=== PATIENT | male | born 1940 | race Caucasian/White ===

== ENCOUNTER 2017-04-11 18:01 | Emergency (ER) | payer BC, MEDICARE, OTHER ==
[2017-04-11 20:07] VITALS: BP 131/76
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
== END 2017-04-11 21:06 | disposition home or self-care (01) ==
LOC: JP.ED 18:01
DX: S46.911A Strain of unspecified muscle, fascia and tendon at shoulder and upper arm level, right arm, initial encounter (principal); G47.30 Sleep apnea, unspecified; Z90.49 Acquired absence of other specified parts of digestive tract; Z98.890 Other specified postprocedural states; Z85.820 Personal history of malignant melanoma of skin; V89.2XXA Person injured in unspecified motor-vehicle accident, traffic, initial encounter; Y92.410 Unspecified street and highway as the place of occurrence of the external cause
CPT/HCPCS: 99283

== ENCOUNTER 2017-07-16 07:05 | Day surgery (SDC) | payer MEDICARE, BC ==
[~2017-07-16 07:05] MED LIST: Sodium Chloride 0.9% 10 ML Syringe FLUSH PRN
[2017-07-16] MEDS ORDERED: Sodium Chloride 0.9% 10 ML Syringe FLUSH ONE (08:30)
[2017-07-16 08:43] VITALS: BP 137/79
--- NOTE | 2017-07-16 11:43 | OR ---
DATE OF PROCEDURE: 07/16/2017 POSTOPERATIVE CARE: Postoperative care will be provided mainly at the [address] [place] [address] [facility] in conjunction with [facility]. PREOPERATIVE DIAGNOSIS: Cataract, left eye. PREOPERATIVE DIAGNOSIS: Cataract, left eye. PROCEDURE: Cataract extraction, phacoemulsification with intraocular lens placement, left eye. ANESTHESIA: Topical and intracameral. ESTIMATED BLOOD LOSS: Minimal. COMPLICATIONS: None. PATHOLOGY SPECIMENS: None. SURGICAL FINDINGS: None. INDICATION FOR PROCEDURE: The patient is a 77-year-old male with history of a visually significant cataract in the left eye, which interfered with activities of daily living. This consisted of a nuclear sclerosis cataract. Following careful discussion of the risks, benefits and alternatives to cataract extraction with intraocular lens placement including blindness and , the patient elected to proceed, and informed, written consent was obtained prior to the procedure. DESCRIPTION OF THE PROCEDURE: The patient was previously identified, and a fabiana placed above the left eye. All sources, including the patient, indicated that the left eye was the correct eye. The patient was subsequently taken to the operating room where standard monitors were applied. The patient was then prepped and draped in the usual sterile fashion for ophthalmic surgery. Attention was first directed at the 12 o'clock position where a paracentesis port was fashioned. Shugar solution followed by Viscoat was instilled into the eye. Attention was then directed to the 8:30 position where a triplanar incision was made in a near-clear manner using a keratome. A continuous capsulorrhexis was then made using a combination of the cystotome and Utrata forceps. Hydrodissection was achieved using a balanced salt solution, and the lens rotated nicely. Phacoemulsification was then done using a modified [id number] technique without complication. Phaco time was 13.73 CDE. The remaining cortex was removed using the irrigation/aspiration handpiece. Provisc was then instilled into the eye. A Technis lens, model [id number], at 21.5 diopters was then placed in the capsular bag using an [place] injector. The remaining viscoelastic was removed using the irrigation/aspiration forceps. A single 10-0 nylon stitch was placed in the main wound. All wounds were then checked and found to be watertight. The lid speculum and drapes were removed. Maxitrol ointment was placed in the patient's left eye, and the eye was shielded. The patient tolerated the procedure well. The patient was instructed to follow up tomorrow. All needle and sponge counts were correct at the end of the procedure. Guerda Hall MD /[id number]
== END 2017-07-16 09:05 | disposition home or self-care (01) ==
LOC: JP.SDS 07:05
PROVIDERS: ATTEND Ophthalmology
DX: H25.12 Age-related nuclear cataract, left eye (principal)
CPT/HCPCS: 66984; C1780; J7050

== ENCOUNTER 2017-07-30 07:27 | Day surgery (SDC) | payer MEDICARE, BC ==
[2017-07-30] MEDS ORDERED: Sodium Chloride 0.9% 10 ML Syringe FLUSH PRN (08:00)
[2017-07-30 09:34] VITALS: BP 137/82
--- NOTE | 2017-07-30 10:21 | OR ---
DATE OF PROCEDURE: 07/30/2017 POSTOPERATIVE CARE: Postoperative care will be provided mainly at the [address] [place] [address] [facility] in conjunction with [facility]. PREOPERATIVE DIAGNOSIS: Cataract, right eye. PREOPERATIVE DIAGNOSIS: Cataract, right eye. PROCEDURE: Cataract extraction, phacoemulsification with intraocular lens placement, right eye. ANESTHESIA: Topical and intracameral. ESTIMATED BLOOD LOSS: Minimal. COMPLICATIONS: None. PATHOLOGY SPECIMENS: None. SURGICAL FINDINGS: None. INDICATION FOR PROCEDURE: The patient is a 77-year-old male with history of a visually significant cataract in the right eye, which interfered with activities of daily living. This consisted of a nuclear sclerosis cataract. Following careful discussion of the risks, benefits and alternatives to cataract extraction with intraocular lens placement including blindness and , the patient elected to proceed, and informed, written consent was obtained prior to the procedure. DESCRIPTION OF THE PROCEDURE: The patient was previously identified, and a fabiana placed above the right eye. All sources, including the patient, indicated that the right eye was the correct eye. The patient was subsequently taken to the operating room where standard monitors were applied. The patient was then prepped and draped in the usual sterile fashion for ophthalmic surgery. Attention was first directed at the 12 o'clock position where a paracentesis port was fashioned. Shugar solution followed by Viscoat was instilled into the eye. Attention was then directed to the 8:30 position where a triplanar incision was made in a near-clear manner using a keratome. A continuous capsulorrhexis was then made using a combination of the cystotome and Utrata forceps. Hydrodissection was achieved using a balanced salt solution, and the lens rotated nicely. Phacoemulsification was then done using a modified [id number] technique without complication. Phaco time was 17.76 CDE. The remaining cortex was removed using the irrigation/aspiration handpiece. Provisc was then instilled into the eye. A Technis lens, model [id number], at 21.5 diopters was then placed in the capsular bag using an [place] injector. The remaining viscoelastic was removed using the irrigation/aspiration forceps. All wounds were then checked and found to be watertight. The lid speculum and drapes were removed. Maxitrol ointment was placed in the patient's right eye, and the eye was shielded. The patient tolerated the procedure well. The patient was instructed to follow up tomorrow. All needle and sponge counts were correct at the end of the procedure. Guerda Hall MD /[id number]
== END 2017-07-30 09:45 | disposition home or self-care (01) ==
LOC: JP.SDS 07:27
PROVIDERS: ATTEND Ophthalmology
DX: H28 Cataract in diseases classified elsewhere (principal); H25.11 Age-related nuclear cataract, right eye
CPT/HCPCS: 66984; C1780; J7050

== ENCOUNTER 2018-09-26 14:08 | Inpatient (IN) | payer MEDICARE, BC ==
[2018-09-26] MEDS ORDERED: Lactated Ringers 1,000 ML IV ONE (14:59)
[2018-09-26] MEDS ORDERED: Pantoprazole 40 MG Vial IVPUSH ONE ×2 (16:05→16:55)
[2018-09-26] MEDS ORDERED: Pantoprazole 40 MG Vial IVPUSH SCH ×2 (16:15→17:00)
[2018-09-26] MEDS ORDERED: Sodium Chloride 0.9% 100 ML with Pantoprazole 80 MG IV SCH ×2 (16:15)
--- NOTE | 2018-09-26 16:16 | EDM.PDOC ---
ED HPI GENERAL MEDICAL PROBLEM - General Chief Complaint: Syncope Stated Complaint: LOW BP/BLOODY STOOL Time Seen by Provider: 09/26/18 15:45 Source of Information: Reports: Patient History Limitations: Reports: No Limitations - History of Present Illness INITIAL COMMENTS - FREE TEXT/NARRATIVE: 78 yo with hx of metastatic melanoma in remission, arthritis (taking Aleve last two weeks), presents with concerns of syncope and GIB Went to shave this AM Standing at sink when he felt light headed. Passed out and landed on bottom. No headstrike. Brief LOC then helped him to toilet where he had bloody BM. Recently taking aleve bid for arthritis. No etoh or liver disease No hx of GERD No blood thinners. - Related Data Allergies Allergy/AdvReac Type Severity Reaction Status Date / Time No Known Allergies Allergy Verified 09/26/18 14:28 Home Meds: Home Meds Ascorbic Acid [Vitamin C] 500 mg PO BID 12/24/15 [History] Cholecalciferol (Vitamin D3) [Vitamin D3] 1,000 units PO DAILY 12/24/15 [History ] Multivitamin [Multiple Vitamins] 1 tab PO DAILY 12/24/15 [History] [place]-3S/DHA/Epa/Fish Oil [Fish Oil Dr 1,000 mg Softgel] 1,000 mg PO DAILY 12/23 [History] Vitamin B Complex [B Complex] 1 each PO DAILY 07/15/17 [History] Gluc [place]/Msm/Chondro Dunne A/C/Mn [Flexi Joint Tablet] 1 tab PO DAILY 06/16/18 [ History] Past Medical History HEENT History: Reports: Cataract, Impaired Vision Respiratory History: Reports: Sleep Apnea, Other (See Below) Other Respiratory History: 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 Gastrointestinal History: Reports: Colon Polyp, Other (See Below) Other Gastrointestinal History: colitis Musculoskeletal History: Reports: Osteoarthritis Hematologic History: Reports: Iron Deficiency Immunologic History: Reports: Other (See Below) Other Immunologic History: Immunotherpy for skin cancer Oncologic (Cancer) History: Reports: Lung, Malignant Melanoma, Squamous Cell Carcinoma Other Oncologic History: facial/headskin Dermatologic History: Reports: Melanoma - Infectious Disease History Infectious Disease History: Reports: Chicken Pox, Measles, Mumps, Shingles - Past Surgical History Head Surgeries/Procedures: Reports: None HEENT Surgical History: Reports: Cataract Surgery Other HEENT Surgeries/Procedures: cataract surg left eye Respiratory Surgical History: Reports: Lung Biopsies Other Respiratory Surgeries/Procedures: radiation for cancer GI Surgical History: Reports: Appendectomy, Colonoscopy, Hernia, Inguinal Musculoskeletal Surgical History: Reports: None Oncologic Surgical History: Reports: None Dermatological Surgical History: Reports: Skin Biopsy Social & Family History - Tobacco Use Smoking Status *Q: Never Smoker Second Hand Smoke Exposure: No - Caffeine Use Caffeine Use: Reports: Soda - Recreational Drug Use Recreational Drug Use: No ED ROS GENERAL - Review of Systems Review Of Systems: See Below Constitutional: Reports: No Symptoms HEENT: Reports: No Symptoms Respiratory: Reports: No Symptoms Cardiovascular: Reports: No Symptoms Endocrine: Reports: No Symptoms GI/Abdominal: Reports: Black Stool, Bloody Stool : Reports: No Symptoms Musculoskeletal: Reports: No Symptoms Skin: Reports: No Symptoms Neurological: Reports: Syncope Psychiatric: Reports: No Symptoms Hematologic/Lymphatic: Reports: No Symptoms Immunologic: Reports: No Symptoms - Physical Exam Exam: See Below Exam Limited By: No Limitations General Appearance: Alert, No Apparent Distress Ears: Normal External Exam Nose: Normal Inspection Throat/Mouth: Normal Inspection Head Exam: Atraumatic, Normocephalic Neck: Normal Inspection Respiratory/Chest: No Respiratory Distress, Lungs Clear Cardiovascular: Normal Peripheral Pulses GI/Abdominal: Soft, Non-Tender Neuro Exam (Abbreviated): Alert, Oriented, Normal Cognition Extremities: Normal Inspection Psychiatric: Normal Affect, Normal Mood Skin Exam: Warm, Dry Course - Vital Signs Last Recorded V/S: Last Vital Signs Temp 35.2 C L 09/26/18 14:37 Pulse 91 09/26/18 15:16 Resp 23 H 09/26/18 15:16 BP 89/43 L 09/26/18 15:16 Pulse Ox 96 09/26/18 15:16 - Orders/Labs/Meds Orders: Active Orders 24 hr Category Date Time Status RED BLOOD CELLS LP [BBK] Stat Lab 09/26/18 15:50 Ordered TYPE AND SCREEN [BBK] Stat Lab 09/26/18 15:50 Ordered Pantoprazole [ProTONIX IV] Med 09/26/18 16:15 Ordered 80 mg IVPUSH .BOLUS Sodium Chloride 0.9% [Normal Saline] 100 ml Med 09/26/18 16:15 Ordered Pantoprazole [ProTONIX IV] 80 mg IV 8 mls/hr Transfuse Red Blood Cells [COMM] Stat Oth 09/26/18 15:50 Ordered Transfuse Red Blood Cells [COMM] Stat Oth 09/26/18 15:50 Ordered Medication Orders Pantoprazole Sodium 80 mg/ (Sodium Chloride) 100 mls @ 8 mls/hr IV .[id number] COY Pantoprazole Sodium (Protonix Iv) 80 mg IVPUSH .BOLUS COY Labs: Laboratory Tests 09/26/18 09/26/18 09/26/18 Range/Units 15:10 15:10 15:10 WBC 10.2 (4.5-11.0) K/uL RBC 2.73 L (4.30-5.90) M/uL Hgb 7.8 L D (12.0-15.0) g/dL Hct 25.9 L (40.0-54.0) % MCV 95 (80-98) fL MCH 29 (27-31) pg MCHC 30 L (32-36) % Plt Count 503 H (150-400) K/uL Sodium 140 (140-148) mmol/L Potassium 4.4 (3.6-5.2) mmol/L Chloride 104 (100-108) mmol/L Carbon Dioxide 29 (21-32) mmol/L Anion Gap 7.3 (5.0-14.0) mmol/L BUN 33 H D (7-18) mg/dL Creatinine 0.7 L (0.8-1.3) mg/dL Est Cr Clr Drug Dosing 85.57 mL/min Estimated GFR (MDRD) > 60 (>60) Glucose 97 (74-106) mg/dL Lactic Acid 1.4 (0.4-2.0) mmol/L Calcium 8.3 L (8.5-10.1) mg/dL Total Bilirubin 0.2 D (0.2-1.0) mg/dL AST 20 (15-37) U/L ALT 18 (12-78) U/L Alkaline Phosphatase 52 (46-116) U/L Total Protein 6.0 L (6.4-8.2) g/dL Albumin 1.7 L (3.4-5.0) g/dL Globulin 4.3 H (2.3-3.5) g/dL Albumin/Globulin Ratio 0.4 L (1.2-2.2) Meds: Medications Generic Name Dose Route Start Last Admin Trade Name Freq PRN Reason Stop Dose Admin Pantoprazole Sodium 80 mg/ 100 mls @ 8 mls/hr 09/26/18 16:15 Sodium Chloride IV .[id number] COY Pantoprazole Sodium 80 mg 09/26/18 16:15 Protonix Iv IVPUSH .BOLUS COY Discontinued Medications Generic Name Dose Route Start Last Admin Trade Name Freq PRN Reason Stop Dose Admin Lactated Ringer's 1,000 mls @ 999 mls/hr 09/26/18 14:59 09/26/18 15:09 Ringers, Lactated IV 09/26/18 15:59 999 mls/hr BOLUS ONE Administration Pantoprazole Sodium 40 mg 09/26/18 16:05 Protonix Iv IVPUSH 09/26/18 16:06 ONETIME ONE - Re-Assessments/Exams Free Text/Narrative Re-Assessment/Exam: 78 yo presents with concerns of syncope and likely upper GIB in setting of NSAID use Initially hypotensive, improved with IVF bolus EKG non-ischemic Hgb down from 14.5 in Dec to 7.8 Transfusing 1 unit PPI gtt ordered No need for head CT Admitted 09/26/18 16:14 Departure - Departure Time of Disposition: 16:14 Disposition: Admitted As Inpatient 65 Clinical Impression: GIB (gastrointestinal bleeding) Qualifiers: GI bleed type/associated pathology: unspecified gastrointestinal hemorrhage type Qualified Code(s): K92.2 - Gastrointestinal hemorrhage, unspecified Syncope Qualifiers: Syncope type: unspecified Qualified Code(s): R55 - Syncope and collapse - Discharge Information Referrals: Suresh Chung MD [Primary Care Provider] - - My Orders Last 24 Hours: My Active Orders 09/26/18 15:50 RED BLOOD CELLS LP [BBK] Stat TYPE AND SCREEN [BBK] Stat Transfuse Red Blood Cells [COMM] Stat Transfuse Red Blood Cells [COMM] Stat 09/26/18 16:15 Pantoprazole [ProTONIX IV] 80 mg IVPUSH .BOLUS Sodium Chloride 0.9% [Normal Saline] 100 ml Pantoprazole [ProTONIX IV] 80 mg IV 8 mls/hr - Assessment/Plan Last 24 Hours: My Active Orders 09/26/18 15:50 RED BLOOD CELLS LP [BBK] Stat TYPE AND SCREEN [BBK] Stat Transfuse Red Blood Cells [COMM] Stat Transfuse Red Blood Cells [COMM] Stat 09/26/18 16:15 Pantoprazole [ProTONIX IV] 80 mg IVPUSH .BOLUS Sodium Chloride 0.9% [Normal Saline] 100 ml Pantoprazole [ProTONIX IV] 80 mg IV 8 mls/hr
--- NOTE | 2018-09-26 16:49 | PCM.HP ---
H&P History of Present Illness - General Date of Service: 09/26/18 Admit Problem/Dx: Admission Diagnosis/Problem Admission Diagnosis/Problem Bleeding Source of Information: Patient, Provider, RN Notes Reviewed History Limitations: Reports: No Limitations - History of Present Illness Initial Comments - Free Text/Narative: Mr. Neal is a 78-year-old gentleman who is admitted through the emergency department with weakness, lightheadedness, and anemia, secondary to upper GI bleed. He has had recent flare of his osteoarthritis and has been taking Aleve twice daily. Over the last week he is become progressively more lightheaded and fatigued with decreased exercise tolerance. The last 2 days he's felt even more weak and today very lightheaded. Also noted was a melenic-appearing stool which occurred earlier this morning. He presented to the emergency department today for further evaluation. Hemoglobin was found to be low at 7.8 and on initial presentation has had borderline systolic blood pressures in the low 90s. He is receiving 1 L of LR in the emergency department. - Related Data Allergies/Adverse Reactions: Allergies Allergy/AdvReac Type Severity Reaction Status Date / Time No Known Allergies Allergy Verified 09/26/18 14:28 Home Medications: Home Meds Ascorbic Acid [Vitamin C] 500 mg PO BID 12/24/15 [History] Cholecalciferol (Vitamin D3) [Vitamin D3] 1,000 units PO DAILY 12/24/15 [History ] Multivitamin [Multiple Vitamins] 1 tab PO DAILY 12/24/15 [History] [place]-3S/DHA/Epa/Fish Oil [Fish Oil Dr 1,000 mg Softgel] 1,000 mg PO DAILY 12/23 [History] Vitamin B Complex [B Complex] 1 each PO DAILY 07/15/17 [History] Gluc Dunne/Msm/Chondro Dunne A/C/Mn [Flexi Joint Tablet] 1 tab PO DAILY 06/16/18 [ History] Past Medical History HEENT History: Reports: Cataract, Impaired Vision Respiratory History: Reports: Sleep Apnea, Other (See Below) Other Respiratory History: 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 Gastrointestinal History: Reports: Colon Polyp, Other (See Below) Other Gastrointestinal History: colitis Musculoskeletal History: Reports: Osteoarthritis Hematologic History: Reports: Iron Deficiency Immunologic History: Reports: Other (See Below) Other Immunologic History: Immunotherpy for skin cancer Oncologic (Cancer) History: Reports: Lung, Malignant Melanoma, Squamous Cell Carcinoma Other Oncologic History: facial/headskin Dermatologic History: Reports: Melanoma - Infectious Disease History Infectious Disease History: Reports: Chicken Pox, Measles, Mumps, Shingles - Past Surgical History Head Surgeries/Procedures: Reports: None HEENT Surgical History: Reports: Cataract Surgery Other HEENT Surgeries/Procedures: cataract surg left eye Respiratory Surgical History: Reports: Lung Biopsies Other Respiratory Surgeries/Procedures: radiation for cancer GI Surgical History: Reports: Appendectomy, Colonoscopy, Hernia, Inguinal Musculoskeletal Surgical History: Reports: None Oncologic Surgical History: Reports: None Dermatological Surgical History: Reports: Skin Biopsy Social & Family History - Tobacco Use Smoking Status *Q: Never Smoker Second Hand Smoke Exposure: No - Caffeine Use Caffeine Use: Reports: Soda - Recreational Drug Use Recreational Drug Use: No H&P Review of Systems - Review of Systems: Review Of Systems: See Below General: Reports: Weakness, Diaphoresis, Decreased Appetite. Denies: Fever, Chills HEENT: Reports: No Symptoms Pulmonary: Reports: No Symptoms Cardiovascular: Reports: No Symptoms Gastrointestinal: Reports: Constipation, Decreased Appetite, Melena. Denies: Abdominal Pain, Diarrhea, Difficulty Swallowing, Distension, Nausea, Vomiting Genitourinary: Reports: No Symptoms Musculoskeletal: Reports: No Symptoms Skin: Reports: No Symptoms Psychiatric: Reports: No Symptoms Neurological: Reports: No Symptoms Hematologic/Lymphatic: Reports: No Symptoms Immunologic: Reports: No Symptoms Exam - Exam Exam: See Below - Vital Signs Vital Signs: Last Vital Signs Temp 95.3 F L 09/26/18 14:37 Pulse 92 09/26/18 16:24 Resp 14 09/26/18 16:24 BP 110/62 09/26/18 16:24 Pulse Ox 99 09/26/18 16:24 Weight: 176 lb 1.331 oz - Exam Quality Assessment: DVT Prophylaxis General: Alert, Oriented, Cooperative, Mild Distress HEENT: Conjunctiva Clear, Hearing Intact, Normal Nasal Septum, Posterior Pharynx Clear, Pupils Equal. No: Mucosa Moist & [place] Neck: Supple, Trachea Midline, +2 Carotid Pulse wo Bruit Lungs: Clear to Auscultation, Normal Respiratory Effort, Decreased Breath Sounds Cardiovascular: Regular Rate, Regular Rhythm, Normal S1, Normal S2 GI/Abdominal Exam: Soft, Non-Tender, No Organomegaly, No Distention Back Exam: Normal Inspection, Full Range of Motion Extremities: Non-Tender, Pedal Edema Skin: Warm, Dry, Intact Neurological: Cranial Nerves Intact, Strength Equal Bilateral, Normal Speech, Normal Tone, Sensation Intact. No: Focal Deficit Neuro Extensive - Mental Status: Alert, Oriented x3, Normal Mood/Affect, Normal Cognition, Memory Intact - Patient Data Lab Results Last 24 hrs: Laboratory Results - last 24 hr 09/26/18 09/26/18 09/26/18 Range/Units 15:10 15:10 15:10 WBC 10.2 (4.5-11.0) K/uL RBC 2.73 L (4.30-5.90) M/uL Hgb 7.8 L D (12.0-15.0) g/dL Hct 25.9 L (40.0-54.0) % MCV 95 (80-98) fL MCH 29 (27-31) pg MCHC 30 L (32-36) % Plt Count 503 H (150-400) K/uL Sodium 140 (140-148) mmol/L Potassium 4.4 (3.6-5.2) mmol/L Chloride 104 (100-108) mmol/L Carbon Dioxide 29 (21-32) mmol/L Anion Gap 7.3 (5.0-14.0) mmol/L BUN 33 H D (7-18) mg/dL Creatinine 0.7 L (0.8-1.3) mg/dL Est Cr Clr Drug Dosing 85.57 mL/min Estimated GFR (MDRD) > 60 (>60) Glucose 97 (74-106) mg/dL Lactic Acid 1.4 (0.4-2.0) mmol/L Calcium 8.3 L (8.5-10.1) mg/dL Total Bilirubin 0.2 D (0.2-1.0) mg/dL AST 20 (15-37) U/L ALT 18 (12-78) U/L Alkaline Phosphatase 52 (46-116) U/L Total Protein 6.0 L (6.4-8.2) g/dL Albumin 1.7 L (3.4-5.0) g/dL Globulin 4.3 H (2.3-3.5) g/dL Albumin/Globulin Ratio 0.4 L (1.2-2.2) Result Diagrams: 09/26/18 15:10 09/26/18 15:10 *Q Meaningful Use (ADM) - VTE *Q VTE Pharmacological Contraindications *Q: Active Hemorrhage - VTE Risk Assess *Q Each Risk Factor Represents 1 Point: Swollen Legs, Current, Obesity ( BMI > 25 kg/m2) Total Score 1 Point Risk Factors: 2 Each Risk Factor Represents 2 Points: None Total Score 2 Point Risk Factors: 0 Each Risk Factor Represents 3 Points: Age 75 Years or Greater Total Score 3 Point Risk Factors: 3 Each Risk Factor Represents 5 Points: None Total Score 5 Point Risk Factors: 0 Venous Thromboembolism Risk Factor Score *Q: 5 Problem List Initiated/Reviewed/Updated: Yes Orders Last 24hrs: Active Orders 24 hr Category Date Time Status Patient Status Manage Transfer [TRANSFER] Routine ADT 09/26/18 16:41 Ordered RED BLOOD CELLS LP [BBK] Stat Lab 09/26/18 15:50 Ordered TYPE AND SCREEN [BBK] Stat Lab 09/26/18 15:50 Ordered Pantoprazole [ProTONIX IV] Med 09/26/18 16:15 Active 80 mg IVPUSH .BOLUS Sodium Chloride 0.9% [Normal Saline] 100 ml Med 09/26/18 16:15 Active Pantoprazole [ProTONIX IV] 80 mg IV 8 mls/hr Transfuse Red Blood Cells [COMM] Stat Oth 09/26/18 15:50 Ordered Transfuse Red Blood Cells [COMM] Stat Oth 09/26/18 15:50 Ordered Resuscitation Status Routine Resus Stat 09/26/18 16:42 Ordered Medication Orders Pantoprazole Sodium 80 mg/ (Sodium Chloride) 100 mls @ 8 mls/hr IV .[id number] [facility] Pantoprazole Sodium (Protonix Iv) 80 mg IVPUSH .BOLUS [facility] Assessment/Plan Comment:: ASSESSMENT AND PLAN UPPER GI BLEED-likely gastritis or ulcer secondary to recent nonsteroidal use. No previous history of ulcer disease or GI bleeding. -Lactated Ringer's at 125 mL per hour -Serial hemoglobin levels -Maintain 2 IV sites -Transfuse one unit of red blood cells now -Crossmatch 2 additional units of blood and hold for future use -Protonix 80 mg IV now -Continuous infusion of Protonix at 8 mg per hour -Surgical consult Dr. Sharma, EGD in a.m. ACUTE BLOOD LOSS ANEMIA-secondary to upper GI bleed MAINTENANCE ISSUES -DVT prophylaxis; SCUDs, hold on anticoagulation because of active bleeding -GI prophylaxis; Protonix as above -Benitez catheter; not indicated -Nutrition; nothing by mouth -Nicotine dependence; not required CODE STATUS-FULL CODE ADMISSION STATUS-patient will be admitted to inpatient status, expect at least a 2 night hospital stay for evaluation and management of problems as outlined above. At the time of this admission I do not reasonably expected evaluation and management of this problem will require more than a 96 hour hospital stay. DISPOSITION-anticipate discharge to home after the hospital stay. PRIMARY CARE PROVIDER-Dr. Chung
[2018-09-26] MEDS ORDERED: Ondansetron 4 MG/2 ML SDV IV PRN (17:14)
[2018-09-26] MEDS ORDERED: Sodium Chloride 0.9% 10 ML Syringe FLUSH PRN (17:14)
[2018-09-26] MEDS ORDERED: Acetaminophen 325 MG Tab PO PRN (17:14)
[2018-09-26] MEDS: Sodium Chloride 0.9% 100 ML with Pantoprazole 80 MG IV SCH ×4 (18:28→19:30)
[2018-09-26] MEDS: Lactated Ringers 1,000 ML IV SCH (19:49)
[2018-09-27] MEDS: Sodium Chloride 0.9% 100 ML with Pantoprazole 80 MG IV SCH ×4 (02:39→05:44)
[2018-09-27] MEDS ORDERED: Propofol 200 MG/20 ML SDV ONE (07:22)
[2018-09-27] MEDS ORDERED: Midazolam 1 MG/ML 2 ML SDV ONE (07:22)
[2018-09-27] MEDS ORDERED: fentaNYL 100 MCG/2 ML SDV ONE (07:22)
--- NOTE | 2018-09-27 08:12 | CONS ---
DATE OF SERVICE: 09/27/2018 REFERRING PHYSICIAN: Abner Thayer MD CONSULTING PHYSICIAN: Joselyn Del Real PA-C REASON FOR CONSULTATION: Upper gastrointestinal bleed. REASON FOR ADMISSION: Ricki was admitted to the hospital through the emergency room yesterday with a hemoglobin of 7.8. He received 3 units of packed red blood cells. This morning, his hemoglobin is 9.1. He is n.p.o. for upper endoscopy with possible biopsies. Case to follow. HISTORY OF PRESENT ILLNESS: Ricki is a 78-year-old man who came to the emergency room with weakness, lightheadedness, and was found to have a hemoglobin of 7.8. He has been taking Aleve twice daily. The last two days, he noticed he did have some blood in his stool, and with increasing weakness and the blood in his stool, he did present to the emergency room. ALLERGIES: NO KNOWN MEDICAL ALLERGIES. HOME MEDICATIONS: See electronic medical record. PAST MEDICAL HISTORY: HEENT: Cataract, impaired vision, wears corrective lenses. Respiratory History: Sleep apnea. Has had metastasis to the lung from malignant melanoma. Gastrointestinal History: Other than chief complaint, has had a colon polyp, had 1 episode flare-up of colitis in June 2018. Musculoskeletal History: Osteoarthritis. Hematologic History: Iron deficiency anemia. Has had cancer, malignant melanoma, and squamous cell carcinoma on face, head, and skin. PAST SURGICAL HISTORY: Cataract surgery, left eye; several lung biopsies; radiation for his cancer; appendectomy; colonoscopy; inguinal hernia; and skin biopsies. SOCIAL HISTORY: Does not smoke. Drinks carbonated beverages. No alcohol intake. REVIEW OF SYSTEMS: GENERAL: Denies any weight loss. Reports weakness, diaphoresis, decreased appetite. No fever or chills. HEENT: Negative. PULMONARY: Has weakness with exercise or activity. States he does get short of breath. CARDIOVASCULAR: No chest pain, shortness of breath. GI: Has had constipation, decreased appetite, blood in stool. No abdominal pain, nausea, vomiting. : Negative. MUSCULOSKELETAL: Reports osteoarthritis. Has joint pain quite severe at times and has been taking Aleve. SKIN: Negative. PSYCHIATRIC: Negative. NEUROLOGIC: Negative. Remainder of review of systems negative for any pertinent positives and negatives. OBJECTIVE: GENERAL: Ricki Neal is a 78-year-old male. VITAL SIGNS: Height is 6 feet 9 inches, weight is 176 pounds. BMI is 18. TPR is 97.5, 81, 16, blood pressure 121/58. HEENT: Negative. NECK: Supple. HEART: Regular rate and rhythm. LUNGS: Clear. ABDOMEN: Soft, nontender. EXTREMITIES: Without peripheral edema. NEUROLOGIC: Intact. PSYCHIATRIC: Mood and affect appropriate. SKIN: Without rash. ASSESSMENT: 1. Upper gastrointestinal bleed, likely gastritis or ulcer secondary to recent nonsteroidal use. 2. Acute blood loss anemia secondary to upper gastrointestinal bleed, requiring 3 units of packed red blood cells. PLAN: Schedule and have consent signed for upper endoscopy, esophagogastroduodenoscopy with IV and local sedation on 09/27/2018. Case to follow. Yahir Sharma MD. N.p.o. No Robinul to be given. Orders to be written post esophagogastroduodenoscopy. Joselyn Del Real PA-C /[phone]
[2018-09-27] MEDS: Lactated Ringers 1,000 ML IV SCH (08:27)
[2018-09-27] MEDS ORDERED: Sodium Chloride 0.9% 10 ML ONE (09:25)
--- NOTE | 2018-09-27 10:52 | PCM.PN ---
- General Info Date of Service: 09/27/18 Subjective Update: there were no acute events overnight. He has received a total of 3 units of blood via transfusion and his hemoglobin is now above 9. He did have a small dark bowel movement last night but none so far today. No abdominal pain or nausea. No fevers. Blood pressure has normalized. EGD this morning showed multiple small erosions consistent with ulcers covered by fibrinous exudate. There is no evidence for active bleeding. Functional Status: Reports: Pain Controlled, Tolerating Diet - Review of Systems Gastrointestinal: Denies: Abdominal Pain - Patient Data Vitals - Most Recent: Last Vital Signs Temp 36.0 C 09/27/18 10:00 Pulse 83 09/27/18 10:15 Resp 16 09/27/18 10:15 BP 111/58 L 09/27/18 10:15 Pulse Ox 95 09/27/18 10:15 Weight - Most Recent: 79.87 kg I&O - Last 24 Hours: Intake & Output 09/26/18 09/27/18 09/27/18 22:59 06:59 14:59 Intake Total 493 1407 200 Output Total 475 450 300 Balance 18 957 -100 Lab Results Last 24 Hours: Laboratory Results - last 24 hr 09/26/18 09/26/18 09/26/18 Range/Units 15:10 15:10 15:10 WBC 10.2 (4.5-11.0) K/uL RBC 2.73 L (4.30-5.90) M/uL Hgb 7.8 L D (12.0-15.0) g/dL Hct 25.9 L (40.0-54.0) % MCV 95 (80-98) fL MCH 29 (27-31) pg MCHC 30 L (32-36) % Plt Count 503 H (150-400) K/uL Neut % (Auto) (36-66) % Lymph % (Auto) (24-44) % Wood % (Auto) (2-6) % Eos % (Auto) (2-4) % Baso % (Auto) (0-1) % Sodium 140 (140-148) mmol/L Potassium 4.4 (3.6-5.2) mmol/L Chloride 104 (100-108) mmol/L Carbon Dioxide 29 (21-32) mmol/L Anion Gap 7.3 (5.0-14.0) mmol/L BUN 33 H D (7-18) mg/dL Creatinine 0.7 L (0.8-1.3) mg/dL Est Cr Clr Drug Dosing 85.57 mL/min Estimated GFR (MDRD) > 60 (>60) Glucose 97 (74-106) mg/dL Lactic Acid 1.4 (0.4-2.0) mmol/L Calcium 8.3 L (8.5-10.1) mg/dL Magnesium (1.8-2.4) mg/dL Total Bilirubin 0.2 D (0.2-1.0) mg/dL AST 20 (15-37) U/L ALT 18 (12-78) U/L Alkaline Phosphatase 52 (46-116) U/L Total Protein 6.0 L (6.4-8.2) g/dL Albumin 1.7 L (3.4-5.0) g/dL Globulin 4.3 H (2.3-3.5) g/dL Albumin/Globulin Ratio 0.4 L (1.2-2.2) Blood Type Gel Antibody Screen Crossmatch 09/26/18 09/26/18 09/26/18 Range/Units 15:50 19:00 23:55 WBC (4.5-11.0) K/uL RBC (4.30-5.90) M/uL Hgb 7.6 L 8.3 L (12.0-15.0) g/dL Hct (40.0-54.0) % MCV (80-98) fL MCH (27-31) pg MCHC (32-36) % Plt Count (150-400) K/uL Neut % (Auto) (36-66) % Lymph % (Auto) (24-44) % Wood % (Auto) (2-6) % Eos % (Auto) (2-4) % Baso % (Auto) (0-1) % Sodium (140-148) mmol/L Potassium (3.6-5.2) mmol/L Chloride (100-108) mmol/L Carbon Dioxide (21-32) mmol/L Anion Gap (5.0-14.0) mmol/L BUN (7-18) mg/dL Creatinine (0.8-1.3) mg/dL Est Cr Clr Drug Dosing mL/min Estimated GFR (MDRD) (>60) Glucose (74-106) mg/dL Lactic Acid (0.4-2.0) mmol/L Calcium (8.5-10.1) mg/dL Magnesium (1.8-2.4) mg/dL Total Bilirubin (0.2-1.0) mg/dL AST (15-37) U/L ALT (12-78) U/L Alkaline Phosphatase (46-116) U/L Total Protein (6.4-8.2) g/dL Albumin (3.4-5.0) g/dL Globulin (2.3-3.5) g/dL Albumin/Globulin Ratio (1.2-2.2) Blood Type A NEGATIVE Gel Antibody Screen Negative Crossmatch See Detail 09/27/18 09/27/18 Range/Units 05:40 05:40 WBC 8.2 (4.5-11.0) K/uL RBC 3.21 L (4.30-5.90) M/uL Hgb 9.1 L (12.0-15.0) g/dL Hct 28.8 L (40.0-54.0) % MCV 90 (80-98) fL MCH 28 (27-31) pg MCHC 32 (32-36) % Plt Count 392 (150-400) K/uL Neut % (Auto) 74 H (36-66) % Lymph % (Auto) 13 L (24-44) % Wood % (Auto) 11 H (2-6) % Eos % (Auto) 2 (2-4) % Baso % (Auto) 0 (0-1) % Sodium 141 (140-148) mmol/L Potassium 3.8 (3.6-5.2) mmol/L Chloride 106 (100-108) mmol/L Carbon Dioxide 28 (21-32) mmol/L Anion Gap 7.2 (5.0-14.0) mmol/L BUN 26 H (7-18) mg/dL Creatinine 0.7 L (0.8-1.3) mg/dL Est Cr Clr Drug Dosing 96.67 mL/min Estimated GFR (MDRD) > 60 (>60) Glucose 92 (74-106) mg/dL Lactic Acid (0.4-2.0) mmol/L Calcium 7.9 L (8.5-10.1) mg/dL Magnesium 1.9 (1.8-2.4) mg/dL Total Bilirubin (0.2-1.0) mg/dL AST (15-37) U/L ALT (12-78) U/L Alkaline Phosphatase (46-116) U/L Total Protein (6.4-8.2) g/dL Albumin (3.4-5.0) g/dL Globulin (2.3-3.5) g/dL Albumin/Globulin Ratio (1.2-2.2) Blood Type Gel Antibody Screen Crossmatch Med Orders - Current: Current Medications Acetaminophen (Tylenol) 650 mg PO Q4H PRN PRN Reason: Pain (Mild 1-3)/fever Pantoprazole Sodium 80 mg/ (Sodium Chloride) 100 mls @ 10 mls/hr IV .Q10H [facility] Stop: 09/27/18 13:00 Last Admin: 09/27/18 05:44 Dose: 10 mls/hr Ondansetron HCl (Zofran) 4 mg IV Q4H PRN PRN Reason: Nausea/Vomiting Pantoprazole Sodium (Protonix) 40 mg PO BIDAC [facility] Sodium Chloride (Saline Flush) 10 ml FLUSH ASDIRECTED PRN PRN Reason: Keep Vein Open Discontinued Medications Fentanyl (Sublimaze) Confirm Administered Dose 100 mcg .ROUTE .STK-MED ONE Stop: 09/27/18 07:23 Lactated Ringer's (Ringers, Lactated) 1,000 mls @ 999 mls/hr IV BOLUS ONE Stop: 09/26/18 15:59 Last Admin: 09/26/18 15:09 Dose: 999 mls/hr Pantoprazole Sodium 80 mg/ (Sodium Chloride) 100 mls @ 8 mls/hr IV .[id number] [facility] Last Admin: 09/26/18 18:29 Dose: Not Given Lactated Ringer's (Ringers, Lactated) 1,000 mls @ 125 mls/hr IV ASDIRECTED [facility] Last Admin: 09/27/18 08:27 Dose: 125 mls/hr Pantoprazole Sodium 80 mg/ (Sodium Chloride) 100 mls @ 10 mls/hr IV .Q10H [facility] Sodium Chloride (Normal Saline) Confirm Administered Dose 10 mls @ as directed .ROUTE .STK-MED ONE Stop: 09/27/18 09:26 Midazolam HCl (Versed 1 Mg/Ml) Confirm Administered Dose 2 mg .ROUTE .STK-MED ONE Stop: 09/27/18 07:23 Pantoprazole Sodium (Protonix Iv) 40 mg IVPUSH ONETIME ONE Stop: 09/26/18 16:06 Last Admin: 09/26/18 18:29 Dose: Not Given Pantoprazole Sodium (Protonix Iv) 80 mg IVPUSH .BOLUS COY Pantoprazole Sodium (Protonix Iv) 80 mg IVPUSH .BOLUS COY Pantoprazole Sodium (Protonix Iv) 80 mg IVPUSH .BOLUS ONE Stop: 09/26/18 16:56 Last Admin: 09/26/18 17:10 Dose: 80 mg Propofol (Diprivan 20 Ml) Confirm Administered Dose 200 mg .ROUTE .STK-MED ONE Stop: 09/27/18 07:23 - Exam Quality Assessment: No: Supplemental Oxygen General: Alert, Oriented, Cooperative, No Acute Distress Lungs: Normal Respiratory Effort Cardiovascular: Regular Rate, Regular Rhythm GI/Abdominal Exam: Soft, No Distention Extremities: No Pedal Edema Skin: Warm, Dry Psy/Mental Status: Alert, Normal Affect - Problem List Review Problem List Initiated/Reviewed/Updated: Yes - My Orders Last 24 Hours: My Active Orders 09/27/18 10:28 Discontinue Telemetry Monitoring [Cardiac Monitoring Discontinue] [RC] Click to Edit 09/27/18 10:42 Convert IV to Saline Lock [OM.PC] Routine 09/27/18 16:30 Pantoprazole [ProTONIX] 40 mg PO BIDAC 09/27/18 18:00 HGB [HEMOGLOBIN] [HEME] Routine 09/28/18 05:00 BASIC METABOLIC PANEL,BMP [CHEM] Timed CBC W/O DIFF,HEMOGRAM [HEME] Timed (1) - Plan Plan:: ASSESSMENT AND PLAN UPPER GI BLEED - secondary to multiple small ulcers. No evidence for active bleeding. Recent NSAID suspected as the source. bleeding seems to have stopped and vital signs have been stable. -saline lock IV -hemoglobin tonight and in the morning -Maintain 2 IV sites -hold 2 units of blood in case there is additional bleeding -twice daily PPI ACUTE BLOOD LOSS ANEMIA - secondary to upper GI bleed. MAINTENANCE ISSUES -DVT prophylaxis; SCUDs, hold on anticoagulation because of active bleeding -GI prophylaxis; PPI -Nutrition; regular diet DISPOSITION - anticipate discharge to home after the hospital stay. Vickey Cardenas MD
[2018-09-27] MEDS ORDERED: Sodium Chloride 0.9% 100 ML with Pantoprazole 80 MG IV SCH ×2 (15:30)
[2018-09-27] MEDS: Pantoprazole 40 MG Tab.CR PO SCH (15:37)
[2018-09-28 08:04] VITALS: BP 105/59
[2018-09-28] MEDS: Pantoprazole 40 MG Tab.CR PO SCH (08:54)
--- NOTE | 2018-09-28 09:57 | PCM.DCSUM1 ---
Discharge Summary - Hospital Course Brief History: 78-year-old male withprimary osteoarthritis and recent nonsteroidal use who presented with an episode of syncope while shaving. Workup in the emergency room suggested upper gastrointestinal hemorrhage and anemia due to acute blood loss. He received a unit of blood and was admitted for further management. Diagnosis: Stroke: No - Discharge Data Discharge Date: 09/28/18 Discharge Disposition: Home, Self-Care 01 Condition: Good - Discharge Diagnosis/Problem(s) (1) Acute upper gastrointestinal hemorrhage SNOMED Code(s): 21019295 ICD Code: K92.2 - GASTROINTESTINAL HEMORRHAGE, UNSPECIFIED Status: Acute Current Visit: Yes (2) Anemia due to acute blood loss SNOMED Code(s): 365720717 ICD Code: D62 - ACUTE POSTHEMORRHAGIC ANEMIA Status: Acute Current Visit : Yes (3) Primary osteoarthritis of right hip SNOMED Code(s): 492009787, 710483886 ICD Code: M16.11 - UNILATERAL PRIMARY OSTEOARTHRITIS, RIGHT HIP Status: Chronic Current Visit: No - Patient Summary/Data Consults: Consultations 09/26/18 17:14 Consult to Physician [CONS] Routine Consulting Provider: Yahir Sharma Courtesy Call Completed to Consulting Physician: Yes Reason for Consult: Upper GI bleed, EGD in a.m. Hospital Course: León presented to the emergency room after an episode of syncope. Workup in the emergency room revealed borderline hypotension as well as evidence for an acute upper gastrointestinal hemorrhage and anemia due to acute blood loss. His hemoglobin was 7.8 and he did receive a unit of blood in the emergency room as well as IV fluids. He was admitted to the hospital for further management. He was started on a pantoprazole infusion. Repeat hemoglobin later in the evening was down to 7.6 so he received a second unit of blood. Blood pressures have started to stabilize with the volume blood resuscitation. He received a third unit of blood that night and has been stable since that time. The morning after admission surgery was consult and an EGD was performed. This showed multiple small erosions in the stomach consistent with underlying ulcers. It was suspected that his recent nonsteroidal use contributed to these ulcers forming. There is no evidence for active bleeding and there appeared to be fibrin caps over the top of the ulcers. Serial hemoglobins following the transfusions have been stable. His hemoglobin has remained above 9. There is no evidence of ongoing bleeding. He has tolerated his regular diet. The plan is for him to be on a proton pump inhibitor for the next 3 months. Regarding his arthritis pain, we are going to try him on acetaminophen. He should avoid nonsteroidals for at least the next month and if he is to be on them he should be on a proton pump inhibitor. He has been up and walking around and has not had any dizziness, lightheadedness or presyncope. He is safe for discharge at this time and has been stable for more than 24 hours. He has follow-up scheduled for early next week. - Patient Instructions Diet: Regular Diet as Tolerated Activity: As Tolerated Driving: May Drive Today Showering/Bathing: May Shower Notify Provider of: Fever, Increased Pain, Nausea and/or Vomiting Other/Special Instructions: 1. You were in the hospital for management of an upper gastrointestinal hemorrhage. Your bleeding was severe enough that you required 3 blood transfusions. The source of bleeding appears to be multiple small ulcers in your stomach. There was no evidence for active bleeding on the endoscopy. I suspect these ulcers formed because of your recent use of naproxen (Aleve). I would recommend that you not take any nonsteroidal medications such as Aleve or ibuprofen. To help heal the ulcers I would recommend that you take pantoprazole 40 mg twice daily with meals for one month and then once daily with a meal for 2 months. I have provided a prescription for 60 tablets with one refill and this should provide adequate pills. 2. For your arthritis pain I would recommend trying extra strength acetaminophen. You should take 1000 mg as needed 3 times daily (morning, afternoon and evening for example). You may schedule the medication or take it only as needed for pain. 3. Follow up with your primary care as scheduled next week. 4. Seek medical attention if you have fever greater than 101, severe abdominal pain or if you have return of either black tarry stools or significant blood in your stool. - Discharge Plan *PRESCRIPTION DRUG MONITORING PROGRAM REVIEWED*: Not Applicable *COPY OF PRESCRIPTION DRUG MONITORING REPORT IN PATIENT MORELIA: Not Applicable Prescriptions/Med Rec: Pantoprazole Sodium 40 mg PO BIDAC #60 tablet.dr Diaz Medications: Home Meds Ascorbic Acid [Vitamin C] 500 mg PO BID 12/24/15 [History] Cholecalciferol (Vitamin D3) [Vitamin D3] 1,000 units PO DAILY 12/24/15 [History ] Multivitamin [Multiple Vitamins] 1 tab PO DAILY 12/24/15 [History] [place]-3S/DHA/Epa/Fish Oil [Fish Oil 1,000 mg Softgel] 1,000 mg PO DAILY 12/23 [History] Vitamin B Complex [B Complex] 1 each PO DAILY 07/15/17 [History] Gluc Dunne/Msm/Chondro Dunne A/C/Mn [Flexi Joint Tablet] 1 tab PO DAILY 06/16/18 [ History] Pantoprazole Sodium 40 mg PO BIDAC #60 tablet. 09/28/18 [Rx] Oxygen Therapy Mode: Room Air Patient Handouts: Gastrointestinal Bleeding, Pantoprazole tablets Referrals: Suresh Chung MD [Primary Care Provider] - 10/05/18 1:00 pm (f/u on 10/05 at 1 pm - f/u hospital stay for GI bleed and arthritis pain ) - Discharge Summary/Plan Comment DC Time >30 min.: No - Patient Data Vitals - Most Recent: Last Vital Signs Temp 36.3 C 09/28/18 08:02 Pulse 95 09/28/18 08:02 Resp 24 H 09/28/18 08:02 BP 105/59 L 09/28/18 08:02 Pulse Ox 96 09/28/18 08:02 Weight - Most Recent: 79.87 kg I&O - Last 24 hours: Intake & Output 09/27/18 09/28/18 09/28/18 22:59 06:59 14:59 Intake Total 520 200 Output Total 1 Balance 519 200 Lab Results - Last 24 hrs: Laboratory Results - last 24 hr 09/27/18 09/28/18 09/28/18 Range/Units 17:57 04:10 04:10 WBC 9.2 (4.5-11.0) K/uL RBC 3.17 L (4.30-5.90) M/uL Hgb 9.9 L 9.1 L (12.0-15.0) g/dL Hct 28.7 L (40.0-54.0) % MCV 91 (80-98) fL MCH 29 (27-31) pg MCHC 32 (32-36) % Plt Count 386 (150-400) K/uL Sodium 139 L (140-148) mmol/L Potassium 3.7 (3.6-5.2) mmol/L Chloride 105 (100-108) mmol/L Carbon Dioxide 28 (21-32) mmol/L Anion Gap 9.7 (5.0-14.0) mmol/L BUN 24 H (7-18) mg/dL Creatinine 0.8 (0.8-1.3) mg/dL Est Cr Clr Drug Dosing 74.87 mL/min Estimated GFR (MDRD) > 60 (>60) Glucose 114 H (74-106) mg/dL Calcium 7.9 L (8.5-10.1) mg/dL BRAULIO Results - Last 24 hrs: Microbiology 09/27/18 09:22 CLOtest - Final Stomach NEGATIVE CLOTEST Med Orders - Current: Current Medications Acetaminophen (Tylenol) 650 mg PO Q4H PRN PRN Reason: Pain (Mild 1-3)/fever Ondansetron HCl (Zofran) 4 mg IV Q4H PRN PRN Reason: Nausea/Vomiting Pantoprazole Sodium (Protonix) 40 mg PO BIDAC [facility] Last Admin: 09/28/18 08:54 Dose: 40 mg Sodium Chloride (Saline Flush) 10 ml FLUSH ASDIRECTED PRN PRN Reason: Keep Vein Open Discontinued Medications Fentanyl (Sublimaze) Confirm Administered Dose 100 mcg .ROUTE .STK-MED ONE Stop: 09/27/18 07:23 Lactated Ringer's (Ringers, Lactated) 1,000 mls @ 999 mls/hr IV BOLUS ONE Stop: 09/26/18 15:59 Last Admin: 09/26/18 15:09 Dose: 999 mls/hr Pantoprazole Sodium 80 mg/ (Sodium Chloride) 100 mls @ 8 mls/hr IV .[id number] [facility] Last Admin: 09/26/18 18:29 Dose: Not Given Lactated Ringer's (Ringers, Lactated) 1,000 mls @ 125 mls/hr IV ASDIRECTED [facility] Last Admin: 09/27/18 08:27 Dose: 125 mls/hr Pantoprazole Sodium 80 mg/ (Sodium Chloride) 100 mls @ 10 mls/hr IV .Q10H [facility] Stop: 09/27/18 13:00 Last Admin: 09/27/18 05:44 Dose: 10 mls/hr Pantoprazole Sodium 80 mg/ (Sodium Chloride) 100 mls @ 10 mls/hr IV .Q10H COY Sodium Chloride (Normal Saline) Confirm Administered Dose 10 mls @ as directed .ROUTE .STK-MED ONE Stop: 09/27/18 09:26 Midazolam HCl (Versed 1 Mg/Ml) Confirm Administered Dose 2 mg .ROUTE .STK-MED ONE Stop: 09/27/18 07:23 Pantoprazole Sodium (Protonix Iv) 40 mg IVPUSH ONETIME ONE Stop: 09/26/18 16:06 Last Admin: 09/26/18 18:29 Dose: Not Given Pantoprazole Sodium (Protonix Iv) 80 mg IVPUSH .BOLUS COY Pantoprazole Sodium (Protonix Iv) 80 mg IVPUSH .BOLUS COY Pantoprazole Sodium (Protonix Iv) 80 mg IVPUSH .BOLUS ONE Stop: 09/26/18 16:56 Last Admin: 09/26/18 17:10 Dose: 80 mg Propofol (Diprivan 20 Ml) Confirm Administered Dose 200 mg .ROUTE .STK-MED ONE Stop: 09/27/18 07:23 - Exam Quality Assessment: Denies: Supplemental Oxygen General: Reports: Alert, Oriented, Cooperative, No Acute Distress Lungs: Reports: Normal Respiratory Effort Cardiovascular: Reports: Regular Rate, Regular Rhythm GI/Abdominal Exam: Soft, No Distention Extremities: No Pedal Edema Psy/Mental Status: Reports: Alert, Normal Affect *Q Meaningful Use (DIS) - VTE *Q VTE Pharmacological Contraindications *Q: Active Hemorrhage
--- NOTE | 2018-09-28 10:04 | PN ---
DATE OF SERVICE: 09/28/2018 SUBJECTIVE: Ricki has had no further GI bleeding. He has been up ambulating. States he feels good. Denies pain. REVIEW OF SYSTEMS: HEENT: Negative. NECK: Negative. CHEST: No chest pain or shortness of breath. LUNGS: No cough. ABDOMEN: As above. : Negative. EXTREMITIES: Negative. SKIN: Without rash. NEURO: Intact. PSYCHIATRIC: Negative. Remainder of review of systems negative for any pertinent positives and negatives. OBJECTIVE: GENERAL: Ricki Neal is a pleasant 78-year-old male. VITAL SIGNS: TPR is 97.3, 95, 24, blood pressure 105/59. HEENT: Negative. NECK: Supple. HEART: Regular rate and rhythm. LUNGS: Clear. ABDOMEN: Negative for any tenderness. EXTREMITIES: Without peripheral edema. ASSESSMENT: 1. Gastrointestinal bleed. 2. EGD with antral biopsy CLOtest; postop findings, multiple erosive gastritis in the antrum and proximal duodenum; well healing, covered with fibrous exudate. Negative for blood or bleeding; surgeon is Yahir Sharma MD, date is 09/27/2018. PLAN: 1. Remain on a PPI. 2. No NSAIDs. 3. Follow up with primary care provider when discharged. 4. We will evaluate p.r.n. or in a.m. Joselyn Del Real PA-C /[id number]
--- NOTE | 2018-10-04 14:51 | OR ---
DATE OF PROCEDURE: 09/27/2018 PREOPERATIVE DIAGNOSIS: Upper gastrointestinal bleeding. POSTOPERATIVE DIAGNOSIS: Multiple erosions in the gastric antrum and proximal duodenum (no active bleeding or blood seen on today's exam). OPERATIVE PROCEDURE: Esophagogastroduodenoscopy with antral biopsies for CLOtest. ANESTHESIA: IV sedation. INDICATIONS FOR PROCEDURE: This is a 78-year-old presenting with significant upper GI bleeding stool being quite dark, black, tarry in appearance and then became more actively red, and hemoglobin did drop down in the range of 6. The plan is to proceed with upper GI endoscopy with biopsies as indicated. Potential risks including bleeding and perforation were discussed and the patient wishes to proceed. PROCEDURE IN DETAIL: The patient was taken to the operating room, placed in a left lateral decubitus position. IV sedation was administered after which the upper GI endoscope was passed orally through the length of the esophagus into the stomach with retroflexion view of the fundus, thereafter through the pyloric channel and into the proximal duodenum. Findings included normal hypopharynx, larynx, upper esophageal sphincter, and esophageal body. At the EG junction, the patient was noted to have some degree of hiatal hernia, but without significant inflammation, stricturing, or any signs of Madrigal's esophagus per se. Within the stomach, a tiny amount of bile was present. There were multiple erosions within the gastric antrum and proximal duodenum. These were all presently healing and were covered with fibrinous exudate that certainly would account for recent bleeding episodes. No blood or bleeding was seen during the exam. At this point, biopsies were obtained from the antrum and sent for CLOtest for H. pylori. Minimal bleeding from the biopsy sites was seen and the procedure concluded. The patient was taken to the recovery room in satisfactory condition. Yahir Sharma MD /[id number]
== END 2018-09-28 10:40 | disposition home or self-care (01) | DRG 378 ==
LOC: JP.ED 14:08 → JP.MS 16:41
PROVIDERS: ADMIT Hospitalist; ATTEND Internal Medicine
PROC: 30233N1 Transfusion of Nonautologous Red Blood Cells into Peripheral Vein, Percutaneous Approach (ICD-10-PCS; principal; 2018-09-26)
PROC: 30233N1 Transfusion of Nonautologous Red Blood Cells into Peripheral Vein, Percutaneous Approach (ICD-10-PCS; 2018-09-27)
PROC: 0DB68ZX Excision of Stomach, Via Natural or Artificial Opening Endoscopic, Diagnostic (ICD-10-PCS; 2018-09-27)
DX: K92.2 Gastrointestinal hemorrhage, unspecified (principal); K25.4 Chronic or unspecified gastric ulcer with hemorrhage; D62 Acute posthemorrhagic anemia; R42 Dizziness and giddiness; T39.315A Adverse effect of propionic acid derivatives, initial encounter; Y92.009 Unspecified place in unspecified non-institutional (private) residence as the place of occurrence of the external cause; R55 Syncope and collapse; M16.11 Unilateral primary osteoarthritis, right hip; Z85.820 Personal history of malignant melanoma of skin; Z85.118 Personal history of other malignant neoplasm of bronchus and lung; M19.90 Unspecified osteoarthritis, unspecified site; G47.30 Sleep apnea, unspecified; Z85.828 Personal history of other malignant neoplasm of skin; H54.7 Unspecified visual loss; Z92.3 Personal history of irradiation; Z92.25 Personal history of immunosuppression therapy
CPT/HCPCS: 36415; 80053; 83605; 85027; 86850; 86900; 86901; 86920 ×3; 86922 ×3; 93005; 93010; 96361; 99285 ×2; J7120; 36430; 80048; 83735; 85018; 85025; 87081; 96374; A9270-GY; C9113; J2250; J2704; J3010; J7030; P9016

== ENCOUNTER 2018-10-01 07:21 | Inpatient (IN) | payer MEDICARE, BC ==
[2018-10-01] MEDS ORDERED: Sodium Chloride 0.9% 1,000 ML IV SCH (07:45)
--- NOTE | 2018-10-01 08:13 | EDM.PDOC ---
ED HPI GENERAL MEDICAL PROBLEM - General Chief Complaint: Gastrointestinal Problem Stated Complaint: MED[facility] Time Seen by Provider: 10/01/18 08:08 Source of Information: Reports: Patient History Limitations: Reports: No Limitations - History of Present Illness INITIAL COMMENTS - FREE TEXT/NARRATIVE: pt arrived after he passed out at home. He was very liteheaded when he got up . He crawled to the bathroom and passed out there. He did have a urge to have a stool when he came around. He did have a large black stool. There were no clots. Onset: Today, Sudden Duration: Hour(s): Location: Reports: Abdomen, Other (pt had a syncopal episode. ) Associated Symptoms: Reports: No Other Symptoms Bilateral Knee Pain Score (Numeric/FACES): 7 - Related Data Allergies Allergy/AdvReac Type Severity Reaction Status Date / Time No Known Allergies Allergy Verified 10/01/18 07:28 Home Meds: Home Meds Ascorbic Acid [Vitamin C] 500 mg PO BID 12/24/15 [History] Cholecalciferol (Vitamin D3) [Vitamin D3] 1,000 units PO DAILY 12/24/15 [History ] Multivitamin [Multiple Vitamins] 1 tab PO DAILY 12/24/15 [History] [place]-3S/DHA/Epa/Fish Oil [Fish Oil Dr 1,000 mg Softgel] 1,000 mg PO DAILY 12/23 [History] Vitamin B Complex [B Complex] 1 each PO DAILY 07/15/17 [History] Gluc Dunne/Msm/Chondro Dunne A/C/Mn [Flexi Joint Tablet] 1 tab PO DAILY 06/16/18 [ History] Pantoprazole Sodium 40 mg PO BIDAC #60 tablet. 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 Gastrointestinal History: Reports: Colon Polyp, Other (See Below) Other Gastrointestinal History: colitis Musculoskeletal History: Reports: Osteoarthritis Hematologic History: Reports: Iron Deficiency Immunologic History: Reports: Other (See Below) Other Immunologic History: Immunotherpy for skin cancer Oncologic (Cancer) History: Reports: Lung, Malignant Melanoma, Squamous Cell Carcinoma Other Oncologic History: facial/headskin Dermatologic History: Reports: Melanoma - Infectious Disease History Infectious Disease History: Reports: Chicken Pox, Measles, Mumps, Shingles - Past Surgical History Head Surgeries/Procedures: Reports: None HEENT Surgical History: Reports: Cataract Surgery Other HEENT Surgeries/Procedures: cataract surg left eye Respiratory Surgical History: Reports: Lung Biopsies Other Respiratory Surgeries/Procedures: radiation for cancer GI Surgical History: Reports: Appendectomy, Colonoscopy, Hernia, Inguinal Musculoskeletal Surgical History: Reports: None Oncologic Surgical History: Reports: None Dermatological Surgical History: Reports: Skin Biopsy Social & Family History - Tobacco Use Smoking Status *Q: Never Smoker - Caffeine Use Caffeine Use: Reports: Soda Other Caffeine Use: occasional - Recreational Drug Use Recreational Drug Use: No ED ROS GENERAL - Review of Systems Review Of Systems: See Below Constitutional: Reports: Malaise, Weakness, Other (pt had been doing well until this am. ) HEENT: Reports: No Symptoms Respiratory: Reports: No Symptoms Cardiovascular: Reports: No Symptoms Endocrine: Reports: No Symptoms GI/Abdominal: Reports: Black Stool, Other (pt had a syncopal episode. ) : Reports: No Symptoms Musculoskeletal: Reports: No Symptoms Skin: Reports: No Symptoms ED EXAM, GI/ABD - Physical Exam Exam: See Below Text/Narrative:: Pt arrived with a history of a syncopal episode, black tarry stool, . He was discharged from the hosp on thursday with a history of multiple ulcerations in the stomach. He had had blood. He had a hg of 9. Exam Limited By: No Limitations General Appearance: Alert, No Apparent Distress, Other (pt does not have abdomanal pain. ) Ears: Normal TMs Nose: Normal Inspection Throat/Mouth: Normal Inspection Head: Atraumatic Neck: Normal Inspection Respiratory/Chest: No Respiratory Distress Cardiovascular: Regular Rate, Rhythm, Tachycardia, Other (pt has a heart rate of 105. ) GI/Abdominal Exam: Soft, Non-Tender (Male) Exam: Deferred Rectal (Males) Exam: Black Stool Back Exam: Normal Inspection Extremities: Normal Inspection Neurological: Alert, Oriented, Normal Cognition Psychiatric: Normal Affect Course - Vital Signs Last Recorded V/S: Last Vital Signs Temp 36.7 C 10/03/18 04:00 Pulse 89 10/03/18 06:00 Resp 15 10/03/18 06:00 BP 99/48 L 10/03/18 06:00 Pulse Ox 95 10/03/18 06:00 - Orders/Labs/Meds Orders: Medication Orders Acetaminophen (Tylenol) 650 mg PO Q4H PRN PRN Reason: Pain (Mild 1-3)/fever Last Admin: 10/01/18 19:32 Dose: 650 mg Admin: 10/01/18 12:35 Dose: 650 mg Albuterol (Proventil Neb Soln) 2.5 mg NEB Q4H PRN PRN Reason: Shortness Of Breath/wheezing Lactated Ringer's (Ringers, Lactated) 1,000 mls @ 125 mls/hr IV ASDIRECTED [facility] Last Admin: 10/03/18 05:52 Dose: 125 mls/hr Infusion: 10/03/18 05:52 Dose: 125 mls/hr Admin: 10/02/18 22:06 Dose: 125 mls/hr Infusion: 10/02/18 20:57 Dose: 125 mls/hr Admin: 10/02/18 12:57 Dose: 125 mls/hr Infusion: 10/02/18 09:17 Dose: 125 mls/hr Admin: 10/02/18 01:17 Dose: 125 mls/hr Infusion: 10/02/18 01:17 Dose: 125 mls/hr Admin: 10/01/18 17:22 Dose: 125 mls/hr Infusion: 10/01/18 17:22 Dose: 125 mls/hr Admin: 10/01/18 09:35 Dose: 125 mls/hr Sodium Chloride (Normal Saline) 85 mls @ 3 mls/sec IV ASDIRECTED [facility] Last Admin: 10/02/18 12:00 Dose: 3 mls/sec Ondansetron HCl (Zofran Odt) 4 mg PO Q6H PRN PRN Reason: Nausea able to take PO Pantoprazole Sodium (Protonix) 40 mg PO BIDAC [facility] Last Admin: 10/02/18 17:20 Dose: 40 mg Labs: Laboratory Tests 10/01/18 10/01/18 10/01/18 Range/Units 07:30 07:38 07:38 WBC 11.7 H (4.5-11.0) K/uL RBC 2.25 L (4.30-5.90) M/uL Hgb 6.4 L* D (12.0-15.0) g/dL Hct 20.9 L (40.0-54.0) % MCV 93 (80-98) fL MCH 28 (27-31) pg MCHC 31 L (32-36) % Plt Count 401 H (150-400) K/uL Neut % (Auto) 83 H (36-66) % Lymph % (Auto) 9 L (24-44) % [place] % (Auto) 7 H (2-6) % Eos % (Auto) 1 L (2-4) % Baso % (Auto) 0 (0-1) % Sodium 140 (140-148) mmol/L Potassium 4.2 (3.6-5.2) mmol/L Chloride 105 (100-108) mmol/L Carbon Dioxide 28 (21-32) mmol/L Anion Gap 6.7 (5.0-14.0) mmol/L BUN 34 H (7-18) mg/dL Creatinine 0.8 (0.8-1.3) mg/dL Est Cr Clr Drug Dosing 74.87 mL/min Estimated GFR (MDRD) > 60 (>60) Glucose 140 H (74-106) mg/dL Calcium 7.8 L (8.5-10.1) mg/dL Total Bilirubin 0.2 (0.2-1.0) mg/dL AST 14 L (15-37) U/L ALT 16 (12-78) U/L Alkaline Phosphatase 47 (46-116) U/L Total Protein 5.5 L (6.4-8.2) g/dL Albumin 1.6 L (3.4-5.0) g/dL Globulin 3.9 H (2.3-3.5) g/dL Albumin/Globulin Ratio 0.4 L (1.2-2.2) Blood Type A NEGATIVE Gel Antibody Screen Negative Crossmatch See Detail Meds: Medications Generic Name Dose Route Start Last Admin Trade Name Freq PRN Reason Stop Dose Admin Acetaminophen 650 mg 10/01/18 09:18 10/01/18 19:32 Tylenol PO 650 mg Q4H PRN Administration Pain (Mild 1-3)/fever Albuterol 2.5 mg 10/01/18 09:18 Proventil Neb Soln NEB Q4H PRN Shortness Of Breath/wheezing Lactated Ringer's 1,000 mls @ 125 mls/hr 10/01/18 09:18 10/03/18 05:52 Ringers, Lactated IV 125 mls/hr ASDIRECTED COY Administration Sodium Chloride 85 mls @ 3 mls/sec 10/02/18 10:45 10/02/18 12:00 Normal Saline IV 3 mls/sec ASDIRECTED COY Administration Ondansetron HCl 4 mg 10/01/18 09:18 Zofran Odt PO Q6H PRN Nausea able to take PO Pantoprazole Sodium 40 mg 10/02/18 16:30 10/02/18 17:20 Protonix PO 40 mg BIDAC COY Administration Discontinued Medications Generic Name Dose Route Start Last Admin Trade Name Freq PRN Reason Stop Dose Admin Bisacodyl 10 mg 10/02/18 14:30 10/02/18 14:07 Dulcolax PO 10/02/18 14:31 10 mg ONETIME ONE Administration Fentanyl Confirm 10/02/18 07:25 Sublimaze Administered 10/02/18 07:26 Dose 100 mcg .ROUTE .STK-MED ONE Sodium Chloride 1,000 mls @ 999 mls/hr 10/01/18 07:45 10/01/18 07:48 Normal Saline IV 999 mls/hr ASDIRECTED COY Administration Pantoprazole Sodium 80 mg/ 100 mls @ 10 mls/hr 10/01/18 08:45 10/02/18 04:27 Sodium Chloride IV 10 mls/hr .Q10H COY Administration Lactated Ringer's Confirm 10/02/18 07:35 Ringers, Lactated Administered 10/02/18 07:36 Dose 1,000 mls @ as directed .ROUTE .STK-MED ONE Potassium Chloride 20 meq/ 112 mls @ 50 mls/hr 10/02/18 10:00 10/02/18 12:35 Lidocaine HCl 2 ml/ Sodium IV 10/02/18 13:59 50 mls/hr Chloride Q2H COY Administration Iohexol 20 ml 10/02/18 09:00 10/02/18 09:35 Omnipaque PO 10/02/18 09:01 20 ml ONETIME ONE Administration Iopamidol 150 ml 10/02/18 10:45 10/02/18 12:00 Isovue-300 (61%) IV 150 ml . DIRECTED COY Administration Pantoprazole Sodium 80 mg 10/01/18 08:45 10/01/18 09:45 Protonix Iv IVPUSH 80 mg .BOLUS COY Administration Polyethylene Glycol 238 gm 10/02/18 16:00 10/02/18 15:35 Miralax PO 10/02/18 16:01 238 gm ONETIME ONE Administration Propofol Confirm 10/02/18 07:25 Diprivan 20 Ml Administered 10/02/18 07:26 Dose 200 mg .ROUTE .STK-MED ONE Sodium Chloride 10 ml 10/02/18 10:39 10/02/18 12:00 Saline Flush FLUSH 10/02/18 10:40 10 ml ONETIME ONE Administration - Re-Assessments/Exams Free Text/Narrative Re-Assessment/Exam: 10/01/18 08:15 pt was found to have a hg of 6.4. He was typed and crossed for 3 units of blood. Departure - Departure Time of Disposition: 19:10 Disposition: Admitted As Inpatient 65 Condition: Fair Clinical Impression: Anemia GI bleed Qualifiers: GI bleed type/associated pathology: unspecified gastrointestinal hemorrhage type Qualified Code(s): K92.2 - Gastrointestinal hemorrhage, unspecified Syncope Qualifiers: Syncope type: unspecified Qualified Code(s): R55 - Syncope and collapse - Discharge Information
[2018-10-01] MEDS ORDERED: Pantoprazole 40 MG Vial IVPUSH SCH (08:45)
--- NOTE | 2018-10-01 08:52 | PCM.HP ---
H&P History of Present Illness - General Date of Service: 10/01/18 Admit Problem/Dx: Admission Diagnosis/Problem Admission Diagnosis/Problem Upper gastrointestinal hemorrhage Source of Information: Patient, Family, Provider History Limitations: Reports: No Limitations - History of Present Illness Initial Comments - Free Text/Narative: Ricki presents to the ER today after an episode of syncope at home. He reports feeling well the past two days following hospital discharge. Woke up this morning and while he was getting ready for the day suddenly became dizzy and lightheaded and stumbled backwards landing partially on the bed and then sliding onto the floor. He is not quite sure how long he was out but doesn't think it was very long. He does not have any pain in his back or shoulders or anywhere on his body from the fall. He is not dizzy or woozy laying down. Shortly after he woke up on the floor he had a sudden urge to have a bowel movement. He did make it to the bathroom and passed a very large black tarry stool. He did not have abdominal pain or nausea associated with a bowel movement. This episode feels much like the one that brought him in a few days ago with his upper gastrointestinal bleed. He has not had any fevers or nausea. He has been tolerating his diet. He has not had a bowel movement since hospital discharge. No complaints of chest pain or shortness of breath. Workup in the emergency room revealed a hemoglobin of 6.4. Other labs are unremarkable. He will be admitted to the intensive care unit for further management. - Related Data Allergies/Adverse Reactions: Allergies Allergy/AdvReac Type Severity Reaction Status Date / Time No Known Allergies Allergy Verified 10/01/18 07:28 Home Medications: Home Meds Ascorbic Acid [Vitamin C] 500 mg PO BID 12/24/15 [History] Cholecalciferol (Vitamin D3) [Vitamin D3] 1,000 units PO DAILY 12/24/15 [History ] Multivitamin [Multiple Vitamins] 1 tab PO DAILY 12/24/15 [History] [place]-3S/DHA/Epa/Fish Oil [Fish Oil Dr 1,000 mg Softgel] 1,000 mg PO DAILY 12/23 [History] Vitamin B Complex [B Complex] 1 each PO DAILY 07/15/17 [History] Gluc Dunne/Msm/Chondro Dunne A/C/Mn [Flexi Joint Tablet] 1 tab PO DAILY 06/16/18 [ History] Pantoprazole Sodium 40 mg PO BIDAC #60 tablet. 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 Gastrointestinal History: Reports: Colon Polyp, Other (See Below) Other Gastrointestinal History: colitis Musculoskeletal History: Reports: Osteoarthritis Hematologic History: Reports: Iron Deficiency Immunologic History: Reports: Other (See Below) Other Immunologic History: Immunotherpy for skin cancer Oncologic (Cancer) History: Reports: Lung, Malignant Melanoma, Squamous Cell Carcinoma Other Oncologic History: facial/headskin Dermatologic History: Reports: Melanoma - Infectious Disease History Infectious Disease History: Reports: Chicken Pox, Measles, Mumps, Shingles - Past Surgical History Head Surgeries/Procedures: Reports: None HEENT Surgical History: Reports: Cataract Surgery Other HEENT Surgeries/Procedures: cataract surg left eye Respiratory Surgical History: Reports: Lung Biopsies Other Respiratory Surgeries/Procedures: radiation for cancer GI Surgical History: Reports: Appendectomy, Colonoscopy, Hernia, Inguinal Musculoskeletal Surgical History: Reports: None Oncologic Surgical History: Reports: None Dermatological Surgical History: Reports: Skin Biopsy Social & Family History - Family History GI: Denies: GI bleed - Tobacco Use Smoking Status *Q: Never Smoker - Caffeine Use Caffeine Use: Reports: Soda Other Caffeine Use: occasional - Alcohol Use Alcohol Use History: No - Recreational Drug Use Recreational Drug Use: No H&P Review of Systems - Review of Systems: Review Of Systems: See Below Free Text/Narrative: A complete 12 point review of systems was obtained. Pertinent positives and negatives are noted in the history of present illness. All other systems were reviewed and were negative except as noted. Exam - Exam Exam: See Below - Vital Signs Vital Signs: Last Vital Signs Temp 36.2 C 10/01/18 07:26 Pulse 105 H 10/01/18 07:26 Resp 20 10/01/18 07:26 BP 111/57 L 10/01/18 07:26 Pulse Ox 95 10/01/18 07:26 Weight: 78.925 kg - Exam Quality Assessment: No: Supplemental Oxygen General: Alert, Oriented, Cooperative. No: Mild Distress HEENT: Conjunctiva Clear. No: Mucosa Moist & Dasher, Scleral Icterus Neck: Supple, Trachea Midline. No: Lymphadenopathy Lungs: Clear to Auscultation, Normal Respiratory Effort Cardiovascular: Regular Rhythm, Tachycardia. No: Systolic Murmur GI/Abdominal Exam: Normal Bowel Sounds, Soft, Non-Tender, No Distention, No Mass Back Exam: Normal Inspection, Full Range of Motion Extremities: Pedal Edema (Mild pitting bilateral ankle edema). No: Increased Warmth Peripheral Pulses: 1+: Dorsalis Pedis (L), Dorsalis Pedis (R) Skin: Warm, Dry. No: Rash Neuro Extensive - Mental Status: Alert, Oriented x3, Nl Response to Commands Neuro Extensive - Motor, Sensory, Reflexes: CN II-XII Intact. No: Dysarthria, Abnormal Motor, Tremor Psychiatric: Alert, Normal Affect - Patient Data Lab Results Last 24 hrs: Laboratory Results - last 24 hr 10/01/18 10/01/18 Range/Units 07:38 07:38 WBC 11.7 H (4.5-11.0) K/uL RBC 2.25 L (4.30-5.90) M/uL Hgb 6.4 L* D (12.0-15.0) g/dL Hct 20.9 L (40.0-54.0) % MCV 93 (80-98) fL MCH 28 (27-31) pg MCHC 31 L (32-36) % Plt Count 401 H (150-400) K/uL Neut % (Auto) 83 H (36-66) % Lymph % (Auto) 9 L (24-44) % [place] % (Auto) 7 H (2-6) % Eos % (Auto) 1 L (2-4) % Baso % (Auto) 0 (0-1) % Sodium 140 (140-148) mmol/L Potassium 4.2 (3.6-5.2) mmol/L Chloride 105 (100-108) mmol/L Carbon Dioxide 28 (21-32) mmol/L Anion Gap 6.7 (5.0-14.0) mmol/L BUN 34 H (7-18) mg/dL Creatinine 0.8 (0.8-1.3) mg/dL Est Cr Clr Drug Dosing 74.87 mL/min Estimated GFR (MDRD) > 60 (>60) Glucose 140 H (74-106) mg/dL Calcium 7.8 L (8.5-10.1) mg/dL Total Bilirubin 0.2 (0.2-1.0) mg/dL AST 14 L (15-37) U/L ALT 16 (12-78) U/L Alkaline Phosphatase 47 (46-116) U/L Total Protein 5.5 L (6.4-8.2) g/dL Albumin 1.6 L (3.4-5.0) g/dL Globulin 3.9 H (2.3-3.5) g/dL Albumin/Globulin Ratio 0.4 L (1.2-2.2) Result Diagrams: 10/01/18 07:38 10/01/18 07:38 Gregg Results Last 24 hrs: Microbiology 10/01/18 08:15 Stool Occult Blood (GREGG) - Final Stool / Feces *Q Meaningful Use (ADM) - VTE *Q VTE Pharmacological Contraindications *Q: Active Hemorrhage - VTE Risk Assess *Q Each Risk Factor Represents 1 Point: Swollen Legs, Current Total Score 1 Point Risk Factors: 1 Each Risk Factor Represents 2 Points: None Total Score 2 Point Risk Factors: 0 Each Risk Factor Represents 3 Points: Age 75 Years or Greater Total Score 3 Point Risk Factors: 3 Each Risk Factor Represents 5 Points: None Total Score 5 Point Risk Factors: 0 Venous Thromboembolism Risk Factor Score *Q: 4 - Problem List (1) Acute upper gastrointestinal hemorrhage SNOMED Code(s): 34003401 ICD Code: K92.2 - GASTROINTESTINAL HEMORRHAGE, UNSPECIFIED Status: Acute Current Visit: No (2) Anemia due to acute blood loss SNOMED Code(s): 366969976 ICD Code: D62 - ACUTE POSTHEMORRHAGIC ANEMIA Status: Acute Current Visit : No (3) Syncope SNOMED Code(s): 213121469 ICD Code: R55 - SYNCOPE AND COLLAPSE Status: Acute Current Visit: No Qualifiers: Syncope type: unspecified Qualified Code(s): R55 - Syncope and collapse Problem List Initiated/Reviewed/Updated: Yes Orders Last 24hrs: Active Orders 24 hr Category Date Time Status Patient Status Manage Transfer [TRANSFER] Routine ADT 10/01/18 08:40 Ordered RED BLOOD CELLS LP [BBK] Stat Lab 10/01/18 07:30 Received TYPE AND SCREEN [BBK] Stat Lab 10/01/18 07:30 Received Pantoprazole [ProTONIX IV] Med 10/01/18 08:45 Active 80 mg IVPUSH .BOLUS Sodium Chloride 0.9% [Normal Saline] 1,000 ml Med 10/01/18 07:45 Active IV ASDIRECTED Sodium Chloride 0.9% [Normal Saline] 100 ml Med 10/01/18 08:45 Active Pantoprazole [ProTONIX IV] 80 mg IV 10 mls/hr Transfuse Red Blood Cells [COMM] Routine Oth 10/01/18 08:39 Ordered Resuscitation Status Routine Resus Stat 10/01/18 08:41 Ordered Medication Orders Sodium Chloride (Normal Saline) 1,000 mls @ 999 mls/hr IV ASDIRECTED COY Last Admin: 10/01/18 07:48 Dose: 999 mls/hr Pantoprazole Sodium 80 mg/ (Sodium Chloride) 100 mls @ 10 mls/hr IV .Q10H COY Pantoprazole Sodium (Protonix Iv) 80 mg IVPUSH .BOLUS COY Assessment/Plan Comment:: ASSESSMENT AND PLAN - Acute upper gastrointestinal hemorrhage - complicated by anemia due to acute blood loss. Similar and recent episode just a few days ago. Multiple small ulcers noted in this stomach at that time. He has been on a proton pump inhibitor since that time. Acute onset of symptoms this morning. Hemoglobin now less than 7. He is tachycardic but not hypotensive at this time. -Pantoprazole bolus followed by infusion -IV fluids -Transfuse 1 unit of packed red blood cells now -Consult Dr. Sharma to consider endoscopy later today -Repeat hemoglobin this afternoon Syncope - secondary to volume depletion with acute blood loss. This should improve with management as discussed above. -Cardiac monitoring -Management as above Maintenance issues - - DVT prophylaxis - mechanical with active hemorrhage - GI prophylaxis - IV PPI - Nutrition - nothing by mouth - Benitez catheter - not indicated CODE STATUS - full code Admission justification - This patient will be admitted for inpatient services and is medically appropriate meeting medical necessity for inpatient admission as outlined in my documentation. I reasonably expect the patient will require inpatient services that span a period time over 2 midnights. I reasonably expect this patient to be discharged or transferred within 96 hours after admission to the [facility]. Disposition - I would anticipate discharge home after the hospital stay Primary care physician - Dr Sheldon Cardenas M.D.
[2018-10-01] MEDS ORDERED: Ondansetron 4 MG Tab.DIS PO PRN (09:18)
[2018-10-01] MEDS ORDERED: Albuterol 0.083% 2.5 MG/3 ML Neb Soln NEB PRN (09:18)
[2018-10-01] MEDS: Lactated Ringers 1,000 ML IV SCH ×2 (09:35→17:22)
[2018-10-01] MEDS: Sodium Chloride 0.9% 100 ML with Pantoprazole 80 MG IV SCH ×4 (09:35→18:55)
[2018-10-01] MEDS: Acetaminophen 325 MG Tab PO PRN ×2 (12:35→19:32)
[2018-10-02] MEDS: Lactated Ringers 1,000 ML IV SCH ×3 (01:17→22:06)
[2018-10-02] MEDS: Sodium Chloride 0.9% 100 ML with Pantoprazole 80 MG IV SCH ×2 (04:27)
[2018-10-02] MEDS ORDERED: fentaNYL 100 MCG/2 ML SDV ONE (07:25)
[2018-10-02] MEDS ORDERED: Propofol 200 MG/20 ML SDV ONE (07:25)
[2018-10-02] MEDS ORDERED: Lactated Ringers 1,000 ML ONE (07:35)
[2018-10-02] MEDS ORDERED: Iohexol 300 MG/ML 30 ML Bottle PO ONE (09:00)
--- NOTE | 2018-10-02 09:10 | PCM.PN ---
- General Info Date of Service: 10/02/18 Subjective Update: There were no acute events overnight. He received a total of 3 units of blood yesterday. Hemoglobin stable for the past 12 hours. Bowel movements have been formed but have been black in color. EGD this morning was unremarkable. No abdominal pain or nausea. No fevers. Functional Status: Reports: Pain Controlled, Tolerating Diet - Review of Systems General: Denies: Fever Gastrointestinal: Reports: Melena. Denies: Abdominal Pain, Hematochezia - Patient Data Vitals - Most Recent: Last Vital Signs Temp 36.6 C 10/02/18 04:00 Pulse 91 10/02/18 06:00 Resp 15 10/02/18 06:00 BP 99/57 L 10/02/18 06:00 Pulse Ox 94 L 10/02/18 06:00 Weight - Most Recent: 173 kg I&O - Last 24 Hours: Intake & Output 10/01/18 10/02/18 10/02/18 22:59 06:59 14:59 Intake Total 1474 1710 Output Total 400 1650 300 Balance 1074 60 -300 Lab Results Last 24 Hours: Laboratory Results - last 24 hr 10/01/18 10/01/18 10/01/18 Range/Units 07:30 15:00 20:50 WBC (4.5-11.0) K/uL RBC (4.30-5.90) M/uL Hgb 6.3 L* 8.2 L (12.0-15.0) g/dL Hct (40.0-54.0) % MCV (80-98) fL MCH (27-31) pg MCHC (32-36) % Plt Count (150-400) K/uL Sodium (140-148) mmol/L Potassium (3.6-5.2) mmol/L Chloride (100-108) mmol/L Carbon Dioxide (21-32) mmol/L Anion Gap (5.0-14.0) mmol/L BUN (7-18) mg/dL Creatinine (0.8-1.3) mg/dL Est Cr Clr Drug Dosing mL/min Estimated GFR (MDRD) (>60) Glucose (74-106) mg/dL Calcium (8.5-10.1) mg/dL Blood Type A NEGATIVE Gel Antibody Screen Negative Crossmatch See Detail 10/02/18 10/02/18 Range/Units 05:11 05:11 WBC 8.2 (4.5-11.0) K/uL RBC 2.88 L (4.30-5.90) M/uL Hgb 8.0 L (12.0-15.0) g/dL Hct 25.4 L (40.0-54.0) % MCV 88 (80-98) fL MCH 28 (27-31) pg MCHC 32 (32-36) % Plt Count 332 (150-400) K/uL Sodium 141 (140-148) mmol/L Potassium 3.6 (3.6-5.2) mmol/L Chloride 107 (100-108) mmol/L Carbon Dioxide 28 (21-32) mmol/L Anion Gap 6.3 (5.0-14.0) mmol/L BUN 24 H (7-18) mg/dL Creatinine 0.8 (0.8-1.3) mg/dL Est Cr Clr Drug Dosing 74.87 mL/min Estimated GFR (MDRD) > 60 (>60) Glucose 83 (74-106) mg/dL Calcium 7.8 L (8.5-10.1) mg/dL Blood Type Gel Antibody Screen Crossmatch Gregg Results Last 24 Hours: Microbiology 10/01/18 08:15 Stool Occult Blood (GREGG) - Final Stool / Feces Med Orders - Current: Current Medications Acetaminophen (Tylenol) 650 mg PO Q4H PRN PRN Reason: Pain (Mild 1-3)/fever Last Admin: 10/01/18 19:32 Dose: 650 mg Albuterol (Proventil Neb Soln) 2.5 mg NEB Q4H PRN PRN Reason: Shortness Of Breath/wheezing Lactated Ringer's (Ringers, Lactated) 1,000 mls @ 125 mls/hr IV ASDIRECTED COY Last Admin: 10/02/18 01:17 Dose: 125 mls/hr Iohexol (Omnipaque) 20 ml PO ONETIME ONE Stop: 10/02/18 09:01 Ondansetron HCl (Zofran Odt) 4 mg PO Q6H PRN PRN Reason: Nausea able to take PO Pantoprazole Sodium (Protonix) 40 mg PO BIDAC COY Discontinued Medications Fentanyl (Sublimaze) Confirm Administered Dose 100 mcg .ROUTE .STK-MED ONE Stop: 10/02/18 07:26 Sodium Chloride (Normal Saline) 1,000 mls @ 999 mls/hr IV ASDIRECTED COY Last Admin: 10/01/18 07:48 Dose: 999 mls/hr Pantoprazole Sodium 80 mg/ (Sodium Chloride) 100 mls @ 10 mls/hr IV .Q10H COY Last Admin: 10/02/18 04:27 Dose: 10 mls/hr Lactated Ringer's (Ringers, Lactated) Confirm Administered Dose 1,000 mls @ as directed .ROUTE .STK-MED ONE Stop: 10/02/18 07:36 Pantoprazole Sodium (Protonix Iv) 80 mg IVPUSH .BOLUS [facility] Last Admin: 10/01/18 09:45 Dose: 80 mg Propofol (Diprivan 20 Ml) Confirm Administered Dose 200 mg .ROUTE .STK-Audioms ONE Stop: 10/02/18 07:26 - Exam Quality Assessment: No: Supplemental Oxygen General: Alert, Oriented, Cooperative, No Acute Distress Neck: Supple Lungs: Normal Respiratory Effort GI/Abdominal Exam: Soft, No Distention Skin: Warm, Dry Psy/Mental Status: Alert, Normal Affect - Problem List & Annotations (1) Acute upper gastrointestinal hemorrhage SNOMED Code(s): 82432736 Code(s): K92.2 - GASTROINTESTINAL HEMORRHAGE, UNSPECIFIED Status: Acute Current Visit: No (2) Anemia due to acute blood loss SNOMED Code(s): 374127904 Code(s): D62 - ACUTE POSTHEMORRHAGIC ANEMIA Status: Acute Current Visit: No (3) Syncope SNOMED Code(s): 185393975 Code(s): R55 - SYNCOPE AND COLLAPSE Status: Acute Current Visit: No Qualifiers: Syncope type: unspecified Qualified Code(s): R55 - Syncope and collapse - Problem List Review Problem List Initiated/Reviewed/Updated: Yes - My Orders Last 24 Hours: My Active Orders 10/01/18 08:41 Resuscitation Status Routine 10/01/18 09:18 Patient Status [ADT] Routine Bedrest Bedside Commode [RC] ASDIRECTED Cardiac Monitoring [RC] Q6H Intake and Output [RC] QSHIFT Notify Provider Consults [RC] ASDIRECTED Notify Provider Vital Signs [RC] ASDIRECTED Oxygen Therapy [RC] PRN Pulse Oximetry [RC] CONTINUOUS RT Aerosol Therapy [RC] ASDIRECTED VTE/DVT Education [RC] Per Unit Routine Vital Signs [RC] Q2HR Consult to Physician [CONS] Routine Acetaminophen [Tylenol] 650 mg PO Q4H PRN Albuterol [Proventil Neb Soln] 2.5 mg NEB Q4H PRN Lactated Ringers [Ringers, Lactated] 1,000 ml IV ASDIRECTED Ondansetron [Zofran ODT] 4 mg PO Q6H PRN Antiembolic Hose [OM.PC] Per Unit Routine VTE Pharmacological Contraindications [AST] Per Unit Routine 10/01/18 15:19 Transfuse Red Blood Cells [COMM] Routine 10/02/18 08:38 Abdomen Pelvis w Cont [CT] Routine 10/02/18 09:15 Potassium Chloride 20 MEQ,Lidocaine 1% 2 ML IN 100ML NS @ 50 MLS/HR Potassium Chloride 20 meq Lidocaine 1% [Xylocaine 1%] 2 ml Sodium Chloride 0.9% [Normal Saline] 100 ml IV Q2H 10/02/18 16:30 Pantoprazole [ProTONIX] 40 mg PO BIDAC 10/02/18 17:00 HGB [HEMOGLOBIN] [HEME] Timed 10/03/18 05:00 BASIC METABOLIC PANEL,BMP [CHEM] Timed CBC W/O DIFF,HEMOGRAM [HEME] Timed (1) - Plan Plan:: ASSESSMENT AND PLAN - Acute upper gastrointestinal hemorrhage - complicated by anemia due to acute blood loss. EGD unremarkable. He did require a total of 3 units of blood to be transfused. Hemoglobin stable. Blood pressure in the normal range but on the lower side. Heart rate normal. -Pantoprazole twice daily -Gentle IV fluids -2 units of blood are available -CT of the abdomen and pelvis to look for small bowel pathology -Colonoscopy tomorrow if CT is unremarkable -Repeat hemoglobin this afternoon and in the morning Syncope - secondary to volume depletion with acute blood loss. Stable since admission. -Cardiac monitoring -Management as above Maintenance issues - - DVT prophylaxis - mechanical with active hemorrhage - GI prophylaxis - PPI - Nutrition - nothing by mouth until after CT scan Disposition - I would anticipate discharge home after the hospital stay Primary care physician - Dr Sheldon Cardenas M.D.
[2018-10-02] MEDS: Potassium Chloride 20 MEQ, Lidocaine 1% 2 ML in Sodium Chloride 0.9% 100 ML IV SCH ×2 (09:57→12:35)
[2018-10-02] MEDS ORDERED: Sodium Chloride 0.9% 10 ML Syringe FLUSH ONE (10:39)
[2018-10-02] MEDS ORDERED: Iopamidol 612 MG/ML 150 ML Bottle IV SCH (10:45)
--- NOTE | 2018-10-02 12:52 | CRLCT ---
INDICATION: Recurrent gastrointestinal bleeding. TECHNIQUE: CT abdomen and pelvis acquired with 125 cc Isovue-300 IV and oral contrast. COMPARISON: None. FINDINGS: Lower chest: Unremarkable. Liver: Normal in caliber and attenuation. No masses. Gallbladder and bile ducts: Unremarkable. Pancreas: Unremarkable. Spleen: Normal in caliber. No masses. Adrenal glands: A 1.7 cm left adrenal nodule is on series 2, image 35. A 2nd slightly smaller nodule also in the left adrenal gland is on image 39. Minimal nodularity is in the right adrenal gland. Kidneys: Small parapelvic cysts are in the left kidney. No other masses or stones. No hydronephrosis. GI tract: Normal in caliber and appearance. No sign of mass or inflammation. Normal appendix. Vasculature: Unremarkable. Lymph nodes: No lymphadenopathy. Abdominal wall/Omentum/Peritoneum: Unremarkable. No free air or significant free fluid. Pelvic organs: Unremarkable. Bones: No suspicious bone lesions. IMPRESSION: 1. Unremarkable GI tract. No specific finding to explain gastrointestinal bleeding. 2. Small bilateral adrenal nodules are of doubtful significance. 3. No other acute or significant finding. Dictated by Balaji Phelan MD @ 10/02/2018 12:50:44 PM Please note that all CT scans at this facility use dose modulation, iterative reconstruction, and/or weight-based dosing when appropriate to reduce radiation dose to as low as reasonably achievable. Dictated by: Balaji Phelan MD @ 10/02/2018 12:50:47 (Electronically Signed)
[2018-10-02] MEDS ORDERED: Bisacodyl 5 MG Tab PO ONE (14:30)
[2018-10-02] MEDS ORDERED: Polyethylene Glycol 3350 Powder 238 GM Bot PO ONE (16:00)
[2018-10-02] MEDS: Pantoprazole 40 MG Tab.CR PO SCH (17:20)
[2018-10-03] MEDS: Lactated Ringers 1,000 ML IV SCH (05:52)
[2018-10-03] MEDS ORDERED: fentaNYL 100 MCG/2 ML SDV ONE (07:37)
[2018-10-03] MEDS ORDERED: Propofol 200 MG/20 ML SDV ONE (07:37)
[2018-10-03] MEDS: Pantoprazole 40 MG Tab.CR PO SCH ×2 (08:47→15:41)
--- NOTE | 2018-10-03 11:17 | PCM.PN ---
- General Info Date of Service: 10/03/18 Subjective Update: There were no acute events overnight. He tolerated his bowel prep well with no difficulties. Hemoglobin this morning was stable. Colonoscopy this morning was unremarkable other than diverticulosis. Patient was able to walk and did not have presyncope or syncope. No complaints of abdominal pain or nausea. He is very nervous about going home with the tube significant bleeding episode so close together. Functional Status: Reports: Pain Controlled, Tolerating Diet - Review of Systems Gastrointestinal: Denies: Abdominal Pain, Hematochezia - Patient Data Vitals - Most Recent: Last Vital Signs Temp 36.6 C 10/03/18 10:00 Pulse 82 10/03/18 10:00 Resp 18 10/03/18 10:00 BP 111/54 L 10/03/18 10:00 Pulse Ox 97 10/03/18 10:00 Weight - Most Recent: 173 kg I&O - Last 24 Hours: Intake & Output 10/02/18 10/03/18 10/03/18 22:59 06:59 14:59 Intake Total 2575 1486 400 Output Total 900 Balance 1675 1486 400 Lab Results Last 24 Hours: Laboratory Results - last 24 hr 10/02/18 10/03/18 10/03/18 Range/Units 17:31 04:28 04:28 WBC 7.7 (4.5-11.0) K/uL RBC 2.93 L (4.30-5.90) M/uL Hgb 8.6 L 8.1 L (12.0-15.0) g/dL Hct 26.4 L (40.0-54.0) % MCV 90 (80-98) fL MCH 28 (27-31) pg MCHC 31 L (32-36) % Plt Count 357 (150-400) K/uL Sodium 141 (140-148) mmol/L Potassium 3.3 L (3.6-5.2) mmol/L Chloride 106 (100-108) mmol/L Carbon Dioxide 30 (21-32) mmol/L Anion Gap 8.3 (5.0-14.0) mmol/L BUN 13 (7-18) mg/dL Creatinine 0.8 (0.8-1.3) mg/dL Est Cr Clr Drug Dosing 74.87 mL/min Estimated GFR (MDRD) > 60 (>60) Glucose 100 (74-106) mg/dL Calcium 7.9 L (8.5-10.1) mg/dL Gregg Results Last 24 Hours: Microbiology 10/02/18 07:50 CLOtest - Final Stomach NEGATIVE CLOTEST Med Orders - Current: Current Medications Acetaminophen (Tylenol) 650 mg PO Q4H PRN PRN Reason: Pain (Mild 1-3)/fever Last Admin: 10/01/18 19:32 Dose: 650 mg Albuterol (Proventil Neb Soln) 2.5 mg NEB Q4H PRN PRN Reason: Shortness Of Breath/wheezing Ondansetron HCl (Zofran Odt) 4 mg PO Q6H PRN PRN Reason: Nausea able to take PO Pantoprazole Sodium (Protonix) 40 mg PO BIDAC [facility] Last Admin: 10/03/18 08:47 Dose: 40 mg Discontinued Medications Bisacodyl (Dulcolax) 10 mg PO ONETIME ONE Stop: 10/02/18 14:31 Last Admin: 10/02/18 14:07 Dose: 10 mg Fentanyl (Sublimaze) Confirm Administered Dose 100 mcg .ROUTE .STK-MED ONE Stop: 10/02/18 07:26 Fentanyl (Sublimaze) Confirm Administered Dose 100 mcg .ROUTE .STK-MED ONE Stop: 10/03/18 07:38 Sodium Chloride (Normal Saline) 1,000 mls @ 999 mls/hr IV ASDIRECTED [facility] Last Admin: 10/01/18 07:48 Dose: 999 mls/hr Pantoprazole Sodium 80 mg/ (Sodium Chloride) 100 mls @ 10 mls/hr IV .Q10H [facility] Last Admin: 10/02/18 04:27 Dose: 10 mls/hr Lactated Ringer's (Ringers, Lactated) 1,000 mls @ 125 mls/hr IV ASDIRECTED [facility] Last Admin: 10/03/18 05:52 Dose: 125 mls/hr Lactated Ringer's (Ringers, Lactated) Confirm Administered Dose 1,000 mls @ as directed .ROUTE .STK-MED ONE Stop: 10/02/18 07:36 Potassium Chloride 20 meq/Lidocaine HCl 2 ml/ Sodium Chloride 112 mls @ 50 mls/ hr IV Q2H [facility] Stop: 10/02/18 13:59 Last Admin: 10/02/18 12:35 Dose: 50 mls/hr Sodium Chloride (Normal Saline) 85 mls @ 3 mls/sec IV ASDIRECTED [facility] Last Admin: 10/02/18 12:00 Dose: 3 mls/sec Iohexol (Omnipaque) 20 ml PO ONETIME ONE Stop: 10/02/18 09:01 Last Admin: 10/02/18 09:35 Dose: 20 ml Iopamidol (Isovue-300 (61%)) 150 ml IV . DIRECTED [facility] Last Admin: 10/02/18 12:00 Dose: 150 ml Pantoprazole Sodium (Protonix Iv) 80 mg IVPUSH .BOLUS [facility] Last Admin: 10/01/18 09:45 Dose: 80 mg Polyethylene Glycol (Miralax) 238 gm PO ONETIME ONE Stop: 10/02/18 16:01 Last Admin: 10/02/18 15:35 Dose: 238 gm Propofol (Diprivan 20 Ml) Confirm Administered Dose 200 mg .ROUTE .STK-MED ONE Stop: 10/02/18 07:26 Propofol (Diprivan 20 Ml) Confirm Administered Dose 200 mg .ROUTE .STK-MED ONE Stop: 10/03/18 07:38 Sodium Chloride (Saline Flush) 10 ml FLUSH ONETIME ONE Stop: 10/02/18 10:40 Last Admin: 10/02/18 12:00 Dose: 10 ml - Exam Quality Assessment: No: Supplemental Oxygen General: Alert, Oriented, Cooperative, No Acute Distress Lungs: Normal Respiratory Effort Cardiovascular: Regular Rate, Regular Rhythm GI/Abdominal Exam: Soft, No Distention Extremities: No Pedal Edema Psy/Mental Status: Alert, Normal Affect - Problem List & Annotations (1) Acute upper gastrointestinal hemorrhage SNOMED Code(s): 99375963 Code(s): K92.2 - GASTROINTESTINAL HEMORRHAGE, UNSPECIFIED Status: Acute Current Visit: No (2) Anemia due to acute blood loss SNOMED Code(s): 904028700 Code(s): D62 - ACUTE POSTHEMORRHAGIC ANEMIA Status: Acute Current Visit: No (3) Syncope SNOMED Code(s): 011117285 Code(s): R55 - SYNCOPE AND COLLAPSE Status: Acute Current Visit: Yes Qualifiers: Syncope type: unspecified Qualified Code(s): R55 - Syncope and collapse - Problem List Review Problem List Initiated/Reviewed/Updated: Yes - My Orders Last 24 Hours: My Active Orders 10/02/18 16:30 Pantoprazole [ProTONIX] 40 mg PO BIDAC 10/03/18 09:12 Discontinue Telemetry Monitoring [Cardiac Monitoring Discontinue] [RC] Click to Edit 10/03/18 09:13 Convert IV to Saline Lock [OM.PC] Routine 10/03/18 11:16 Transfer Patient (Change bed) [ADT] Routine 10/03/18 Breakfast Mechanical Soft Diet [DIET] 10/04/18 05:00 BASIC METABOLIC PANEL,BMP [CHEM] Timed HGB [HEMOGLOBIN] [HEME] Timed - Plan Plan:: ASSESSMENT AND PLAN - Acute upper gastrointestinal hemorrhage - complicated by anemia due to acute blood loss. CT, EGD and colonoscopy all unremarkable. He did require a total of 3 units of blood to be transfused. Hemoglobin has been stable over the past 48 hours. No presyncope today. Patient very nervous with recent bleeding issues. -Pantoprazole twice daily -Saline lock IV -2 units of blood are available -Repeat hemoglobin this afternoon and in the morning -Outpatient capsule endoscopy ([facility]) Syncope - secondary to volume depletion with acute blood loss. Stable since admission. -Cardiac monitoring -Management as above Maintenance issues - - DVT prophylaxis - mechanical with active hemorrhage - GI prophylaxis - PPI - Nutrition - mechanical soft diet Disposition - I would anticipate discharge home after the hospital stay, likely tomorrow if stable overnight Primary care physician - Dr Sheldon Cardenas M.D.
--- NOTE | 2018-10-03 11:55 | OR ---
DATE OF PROCEDURE: 10/03/2018 PREOPERATIVE DIAGNOSIS: Gastrointestinal bleeding. POSTOPERATIVE DIAGNOSIS: Colonoscopy showing very limited uncomplicated left-sided diverticulosis (no blood or bleeding seen and no likely bleeding sites identified on the colonoscopic examination). OPERATIVE PROCEDURE: Flexible colonoscopy. ANESTHESIA: IV sedation. INDICATIONS FOR PROCEDURE: The patient presented with gastrointestinal bleeding once again. Thus far upper endoscopy and CT scan of the abdomen and pelvis have been negative for identifying bleeding source. The patient is to undergo colonoscopy with biopsies and polypectomies as indicated. Potential risks including bleeding and perforation were discussed with the patient this morning and he wishes to proceed. DETAILS OF PROCEDURE: The patient was taken to the operating room and placed in a left lateral decubitus position. IV sedation was administered, after which the initial digital rectal exam was performed and was unremarkable. Colonoscope was then passed into the rectum with retroflexion revealing uncomplicated hemorrhoidal columns. Scope was then passed eventually into the cecum. The prep was fairly good. There were some scattered very dark green and at sometimes blackish fluid within the colon, but the vast majority of the mucosal surfaces were well seen to that level apart from some uncomplicated very limited left colonic diverticulosis. No abnormalities were noted. Again, no blood or bleeding was seen, and no likely bleeding sources were identified. Scope has been withdrawn and the above findings were reconfirmed and the procedure concluded. The patient was taken to the recovery room in satisfactory condition. The patient will likely as a next step need to be for capsule enteroscopy to look at the small bowel for potential bleeding sources. Yahir Sharma MD /[id number]
--- NOTE | 2018-10-03 12:36 | PN ---
DATE OF SERVICE: 10/03/2018 The patient has had a stable hemoglobin over the last 24 hours, but no overt blood. He has some black stools with the colonoscopy prep. Colonoscopy was negative this morning, and given this, the patient will likely be set up for a capsule enteroscopy per the hospitalist. Otherwise, we will restart some diet today and management will continue per Dr. Eisenberg, and starting tomorrow with Dr. Thayer. Yahir Sharma MD /[id number]
[2018-10-03] MEDS: Acetaminophen 325 MG Tab PO PRN ×2 (15:27→21:18)
[2018-10-04] MEDS: Pantoprazole 40 MG Tab.CR PO SCH ×2 (07:16→16:55)
[2018-10-04] MEDS: Acetaminophen 325 MG Tab PO PRN ×3 (07:18→21:14)
--- NOTE | 2018-10-04 10:23 | PN ---
DATE OF SERVICE: 10/04/2018 SUBJECTIVE: Ricki is a 78-year-old male with a GI bleed. His upper GI and colonoscopy were both negative. Hemoglobin this morning is 8.1. He is being set up for capsule endoscopy. REVIEW OF SYSTEM: HEENT: Negative. NECK: Negative. HEART: No chest pain, shortness of breath, fast or irregular heart beat. LUNGS: No cough. ABDOMEN: As above. EXTREMITIES: Negative for any pain or joint pain. NEURO: Denies headache, dizziness, loss of coordination. PSYCHIATRIC: Negative. Remainder of review of systems negative for any pertinent positives and negatives. OBJECTIVE: GENERAL: Ricki Neal is a pleasant 78-year-old male, in no acute distress. VITAL SIGNS: TPR 97.9, 95, 18, blood pressure 103/58. HEENT: Negative. NECK: Supple. HEART: Regular rate and rhythm. LUNGS: Clear. ABDOMEN: Soft and nontender. EXTREMITIES: Without peripheral edema. NEURO: Intact. PSYCHIATRIC: Mood and affect appropriate. ASSESSMENT: 1. Acute upper gastrointestinal hemorrhage. 2. Anemia due to acute blood loss. 3. Syncope. 4. EGD on 10/02/2018 and colonoscopy 10/03/2018. PLAN: Capsule endoscopy is being set up. He is to followup with Yahir Sharma MD at [facility] on 10/14/2018 at 1 p.m. Joselyn Del Real PA-C /[id number]
--- NOTE | 2018-10-04 12:33 | PCM.PN ---
- General Info Date of Service: 10/04/18 Subjective Update: Mr. Neal has been stable since yesterday with no further evidence of active GI bleed. Hemoglobin has remained stable within the range of 8.0-8.5. Denies significant abdominal discomfort, vital signs have been stable. Functional Status: Reports: Tolerating Diet, Ambulating, Urinating - Review of Systems General: Reports: Weakness. Denies: Fever, Chills Pulmonary: Reports: No Symptoms Cardiovascular: Reports: No Symptoms Gastrointestinal: Reports: No Symptoms - Patient Data Vitals - Most Recent: Last Vital Signs Temp 97.8 F 10/04/18 10:15 Pulse 81 10/04/18 10:15 Resp 18 10/04/18 10:15 BP 97/52 L 10/04/18 10:15 Pulse Ox 96 10/04/18 10:15 Weight - Most Recent: 173 lb I&O - Last 24 Hours: Intake & Output 10/03/18 10/04/18 10/04/18 22:59 06:59 14:59 Intake Total 240 750 Output Total 375 Balance -135 750 Lab Results Last 24 Hours: Laboratory Results - last 24 hr 10/04/18 10/04/18 Range/Units 04:18 04:18 Hgb 8.0 L (12.0-15.0) g/dL Sodium 140 (140-148) mmol/L Potassium 3.6 (3.6-5.2) mmol/L Chloride 106 (100-108) mmol/L Carbon Dioxide 29 (21-32) mmol/L Anion Gap 5.2 (5.0-14.0) mmol/L BUN 17 (7-18) mg/dL Creatinine 0.9 (0.8-1.3) mg/dL Est Cr Clr Drug Dosing 66.55 mL/min Estimated GFR (MDRD) > 60 (>60) Glucose 113 H (74-106) mg/dL Calcium 7.9 L (8.5-10.1) mg/dL Gregg Results Last 24 Hours: Microbiology 10/02/18 07:50 CLOtest - Final Stomach NEGATIVE CLOTEST Med Orders - Current: Current Medications Acetaminophen (Tylenol) 650 mg PO Q4H PRN PRN Reason: Pain (Mild 1-3)/fever Last Admin: 10/04/18 07:18 Dose: 650 mg Albuterol (Proventil Neb Soln) 2.5 mg NEB Q4H PRN PRN Reason: Shortness Of Breath/wheezing Ondansetron HCl (Zofran Odt) 4 mg PO Q6H PRN PRN Reason: Nausea able to take PO Pantoprazole Sodium (Protonix) 40 [facility]AC [facility] Last Admin: 10/04/18 07:16 Dose: 40 mg Discontinued Medications Bisacodyl (Dulcolax) 10 mg PO ONETIME ONE Stop: 10/02/18 14:31 Last Admin: 10/02/18 14:07 Dose: 10 mg Fentanyl (Sublimaze) Confirm Administered Dose 100 mcg .ROUTE .K-MED ONE Stop: 10/02/18 07:26 Fentanyl (Sublimaze) Confirm Administered Dose 100 mcg .[address] .[facility] ONE Stop: 10/03/18 07:38 Sodium Chloride (Normal Saline) 1,000 mls @ 999 mls/hr IV ASDIRECTED [facility] Last Admin: 10/01/18 07:48 Dose: 999 mls/hr Pantoprazole Sodium 80 mg/ (Sodium Chloride) 100 mls @ 10 mls/hr IV .Q10H [facility] Last Admin: 10/02/18 04:27 Dose: 10 mls/hr Lactated Ringer's (Ringers, Lactated) 1,000 mls @ 125 mls/hr IV [facility]IRECTED [facility] Last Admin: 10/03/18 05:52 Dose: 125 mls/hr Lactated Ringer's (Ringers, Lactated) Confirm Administered Dose 1,000 mls @ as directed .ROUTE .[facility] ONE Stop: 10/02/18 07:36 Potassium Chloride 20 meq/Lidocaine HCl 2 ml/ Sodium Chloride 112 mls @ 50 mls/ hr IV Q2H [facility] Stop: 10/02/18 13:59 Last Admin: 10/02/18 12:35 Dose: 50 mls/hr Sodium Chloride (Normal Saline) 85 mls @ 3 mls/sec IV [facility]RECTED [facility] Last Admin: 10/02/18 12:00 Dose: 3 mls/sec Iohexol (Omnipaque) 20 ml PO ONETIME ONE Stop: 10/02/18 09:01 Last Admin: 10/02/18 09:35 Dose: 20 ml Iopamidol (Isovue-300 (61%)) 150 ml IV . DIRECTED [facility] Last Admin: 10/02/18 12:00 Dose: 150 ml Pantoprazole Sodium (Protonix Iv) 80 mg IVPUSH .[facility]OLUS [facility] Last Admin: 10/01/18 09:45 Dose: 80 mg Polyethylene Glycol (Miralax) 238 gm PO ONETIME ONE Stop: 10/02/18 16:01 Last Admin: 10/02/18 15:35 Dose: 238 gm Propofol (Diprivan 20 Ml) Confirm Administered Dose 200 mg .ROUTE .STK-MED ONE Stop: 10/02/18 07:26 Propofol (Diprivan 20 Ml) Confirm Administered Dose 200 mg .ROUTE .STK-MED ONE Stop: 10/03/18 07:38 Sodium Chloride (Saline Flush) 10 ml FLUSH ONETIME ONE Stop: 10/02/18 10:40 Last Admin: 10/02/18 12:00 Dose: 10 ml - Exam Quality Assessment: DVT Prophylaxis General: Alert, Oriented, Cooperative, No Acute Distress Lungs: Clear to Auscultation, Normal Respiratory Effort Cardiovascular: Regular Rate, Regular Rhythm, No Murmurs GI/Abdominal Exam: Soft, Non-Tender, No Organomegaly, No Distention Extremities: Non-Tender, No Pedal Edema - Problem List Review Problem List Initiated/Reviewed/Updated: Yes - My Orders Last 24 Hours: My Active Orders 10/05/18 05:11 HGB [HEMOGLOBIN] [HEME] AM - Plan Plan:: ASSESSMENT AND PLAN - Acute upper gastrointestinal hemorrhage - complicated by anemia due to acute blood loss. CT, EGD and colonoscopy all unremarkable. He did require a total of 3 units of blood to be transfused. Hemoglobin has been stable over the past 72 hours. No evidence of active bleeding. -Pantoprazole twice daily -Saline lock IV -2 units of blood are available -Repeat hemoglobin in the morning -Outpatient capsule endoscopy ([facility]) Syncope - secondary to volume depletion with acute blood loss. Stable since admission. -Cardiac monitoring -Management as above Maintenance issues - - DVT prophylaxis - mechanical with active hemorrhage - GI prophylaxis - PPI - Nutrition - mechanical soft diet Disposition - I would anticipate discharge home after the hospital stay, likely tomorrow if stable overnight Primary care physician - Dr Chung
--- NOTE | 2018-10-04 13:39 | OR ---
DATE OF PROCEDURE: 10/02/2018 PREOPERATIVE DIAGNOSIS: Probable upper gastrointestinal bleeding. POSTOPERATIVE DIAGNOSIS: Normal upper gastrointestinal endoscopy to the junction of the third and fourth portions of the duodenum. PROCEDURE PERFORMED: Upper GI endoscopy with biopsies of antrum for CLOtest. ANESTHESIA: IV sedation. INDICATION FOR PROCEDURE: The patient presents once again with probable upper GI bleeding, having some black stools and then red blood per rectum with hemoglobin dropping down into the 6 range once again. The plan is to proceed with an upper GI endoscopy with biopsies as indicated. Potential risks including bleeding and perforation were discussed, and the patient wishes to proceed. DETAILS OF PROCEDURE: The patient was taken to the operating room and placed in a left lateral decubitus position. IV sedation was administered, after which the upper GI endoscope was passed orally through the length of the esophagus into the stomach with retroflexion view of the fundus and, thereafter, through the pyloric channel and into the duodenum. Findings included normal hypopharynx, larynx, upper esophageal sphincter, and esophageal body. At the EG junction, a small hiatal hernia was present but without significant inflammation at the EG junction or distal esophagus. There was no stricturing or signs of neoplasia and no likely bleeding sites identified to that level. Within the stomach, a small amount of retained bile was present. However, the gastritis that was noted previously has now entirely healed in the antrum, and likewise the duodenum is without any erosions or inflammation per se, and no ulcers were present to the junction of the third and fourth portions of the duodenum. No blood or bleeding was seen as well. While the scope was withdrawn, biopsies were obtained from the antrum once again to check for H. pylori via CLOtest. Minimal bleeding at the biopsy site was seen and the procedure then concluded. Plan will be to obtain a CT scan of the abdomen and pelvis to see if we might be able to identify some pathology in the small bowel. Otherwise, we will proceed with a colonoscopy tomorrow, although with the patient's history, this would be a relatively low yield procedure, given quite solid history of the stools at least starting out as tarry black in nature. Yahir Sharma MD /[id number]
[2018-10-05] MEDS: Pantoprazole 40 MG Tab.CR PO SCH (08:06)
[2018-10-05] MEDS: Acetaminophen 325 MG Tab PO PRN (08:08)
[2018-10-05 11:06] VITALS: BP 100/54
--- NOTE | 2018-10-05 12:48 | PCM.DCSUM1 ---
Discharge Summary - Hospital Course Brief History: Mr. Neal is a 78-year-old gentleman who was admitted through the emergency department with weakness and a syncopal episode which occurred at home. He was found to have severe anemia secondary to her recurrent GI bleed. - Discharge Data Discharge Date: 10/05/18 Discharge Disposition: Home, Self-Care 01 Condition: Fair - Discharge Diagnosis/Problem(s) (1) Acute upper gastrointestinal hemorrhage SNOMED Code(s): 57686430 ICD Code: K92.2 - GASTROINTESTINAL HEMORRHAGE, UNSPECIFIED Status: Acute Current Visit: No (2) Anemia due to acute blood loss SNOMED Code(s): 644477625 ICD Code: D62 - ACUTE POSTHEMORRHAGIC ANEMIA Status: Acute Current Visit : No - Patient Summary/Data Consults: Consultations 10/01/18 09:18 Consult to Physician [CONS] Routine Consulting Provider: Yahir Sharma Courtesy Call Completed to Consulting Physician: Yes Reason for Consult: upper GI bleed Person Notified: PEREZ Date Notified: 10/01/18 Hospital Course: Ricki presented to the ED after an episode of syncope at home. He had recently been admitted at this facility with severe anemia and upper GI bleed. He was discharged to home 2 days prior to this admission. He reports feeling well the past two days following hospital discharge. Woke up this morning and while he was getting ready for the day suddenly became dizzy and lightheaded and stumbled backwards landing partially on the bed and then sliding onto the floor. He is not quite sure how long he was out but doesn't think it was very long. He does not have any pain in his back or shoulders or anywhere on his body from the fall. He is not dizzy or woozy laying down. Shortly after he woke up on the floor he had a sudden urge to have a bowel movement. He did make it to the bathroom and passed a very large black tarry stool. He did not have abdominal pain or nausea associated with a bowel movement. This episode feels much like the one that brought him in a few days ago with his upper gastrointestinal bleed. He has not had any fevers or nausea. He has been tolerating his diet. He has not had a bowel movement since hospital discharge. No complaints of chest pain or shortness of breath. Workup in the emergency department revealed a hemoglobin of 6.4. Other labs are unremarkable. He was admitted to the intensive care unit for further management. On admission he was kept nothing by mouth and given IV fluids for hydration. Initially he was transfused one unit of red blood cells with only modest improvement in hemoglobin level. Following that he was transfused 2 more units of red blood cells and hemoglobin came up to above 8 following that transfusion. Hemoglobin remains stable throughout the rest of his hospital stay with no further evidence of active bleeding. He was seen and evaluated by Dr. Sharma on the morning after admission and EGD was repeated which showed no obvious source of blood loss. Following day colonoscopy was performed, which also showed no obvious source of acute blood loss. He was advanced to regular soft diet and tolerated this well throughout the rest of his hospital stay. Serial hemoglobin levels were monitored and remained between 8 and 8.8 up until the time of discharge. Prior to discharge we did discuss his GI bleed and the fact that we had not identified a specific source. He will return mediately to the emergency department if he notes any further melena or recurrent weakness/ lightheadedness. Consult will be set up in the department of gastroenterology at [facility] in [place] for GI consult and capsule endoscopy. Follow-up appointment will be scheduled with his primary care provider in 2 days and a CBC will be obtained at the time of follow-up appointment. Follow-up appointment will also be scheduled with Dr. Sharma for October 14. Activity will be as tolerated and he will be on a soft low residue diet for the next several days. - Patient Instructions Diet: GI Soft/Low Residue/Low Fiber Activity: As Tolerated Other/Special Instructions: Please schedule follow-up appointment with Dr. Chung for October 07, CBC should be obtained at time of follow-up appointment. Please schedule follow-up appointment with Dr. Sharma for October 14. Please arrange for gastroenterology consult and capsule endoscopy as soon as possible. - Discharge Plan *PRESCRIPTION DRUG MONITORING PROGRAM REVIEWED*: Not Applicable *COPY OF PRESCRIPTION DRUG MONITORING REPORT IN PATIENT [place]OREL[place]: Not Applicable Home Medications: Home Meds Ascorbic Acid [Vitamin C] 500 mg PO BID 12/24/15 [History] Cholecalciferol (Vitamin D3) [Vitamin D3] 1,000 units PO DAILY 12/24/15 [History ] Multivitamin [Multiple Vitamins] 1 tab PO DAILY 12/24/15 [History] Rhome-3S/DHA/Epa/Fish Oil [Fish Oil 1,000 mg Softgel] 1,000 mg PO DAILY 12/23 [History] Vitamin B Complex [B Complex] 1 each PO DAILY 07/15/17 [History] Gluc Dunne/Msm/Chondro Dunne A/C/Mn [Flexi Joint Tablet] 1 tab PO DAILY 06/16/18 [ History] Pantoprazole Sodium 40 mg PO BIDAC #60 tablet. 09/28/18 [Rx] Referrals: Suresh Chung MD [Primary Care Provider] - 10/07/18 9:40 am (Please arrive 15 minutes early to register for your appointments.) Yahir Sharma MD [Physician] - 10/14/18 1:00 pm - Discharge Summary/Plan Comment DC Time >30 min.: No - Patient Data Vitals - Most Recent: Last Vital Signs Temp 96.7 F 10/05/18 11:04 Pulse 78 10/05/18 11:04 Resp 16 10/05/18 11:04 BP 100/54 L 10/05/18 11:04 Pulse Ox 98 10/05/18 11:04 Weight - Most Recent: 173 lb I&O - Last 24 hours: Intake & Output 10/04/18 10/05/18 10/05/18 22:59 06:59 14:59 Intake Total 480 600 600 Balance 480 600 600 Lab Results - Last 24 hrs: Laboratory Results - last 24 hr 10/01/18 10/05/18 Range/Units 07:30 04:10 Hgb 8.8 L (12.0-15.0) g/dL Crossmatch See Detail Med Orders - Current: Current Medications Acetaminophen (Tylenol) 650 mg PO Q4H PRN PRN Reason: Pain (Mild 1-3)/fever Last Admin: 10/05/18 08:08 Dose: 650 mg Albuterol (Proventil Neb Soln) 2.5 mg NEB Q4H PRN PRN Reason: Shortness Of Breath/wheezing Ondansetron HCl (Zofran Odt) 4 mg PO Q6H PRN PRN Reason: Nausea able to take PO Pantoprazole Sodium (Protonix) 40 mg PO BIDAC COY Last Admin: 10/05/18 08:06 Dose: 40 mg Discontinued Medications Bisacodyl (Dulcolax) 10 mg PO ONETIME ONE Stop: 10/02/18 14:31 Last Admin: 10/02/18 14:07 Dose: 10 mg Fentanyl (Sublimaze) Confirm Administered Dose 100 mcg .ROUTE .STK-MED ONE Stop: 10/02/18 07:26 Fentanyl (Sublimaze) Confirm Administered Dose 100 mcg .ROUTE .[facility] ONE Stop: 10/03/18 07:38 Sodium Chloride (Normal Saline) 1,000 mls @ 999 mls/hr IV ASDIRECTED [facility] Last Admin: 10/01/18 07:48 Dose: 999 mls/hr Pantoprazole Sodium 80 mg/ (Sodium Chloride) 100 mls @ 10 mls/hr IV .Q10H [facility] Last Admin: 10/02/18 04:27 Dose: 10 mls/hr Lactated Ringer's (Ringers, Lactated) 1,000 mls @ 125 mls/hr IV ASDIRECTED [facility] Last Admin: 10/03/18 05:52 Dose: 125 mls/hr Lactated Ringer's (Ringers, Lactated) Confirm Administered Dose 1,000 mls @ as directed .ROUTE .[facility] ONE Stop: 10/02/18 07:36 Potassium Chloride 20 meq/Lidocaine HCl 2 ml/ Sodium Chloride 112 mls @ 50 mls/ hr IV Q2H COY Stop: 10/02/18 13:59 Last Admin: 10/02/18 12:35 Dose: 50 mls/hr Sodium Chloride (Normal Saline) 85 mls @ 3 mls/sec IV ASDIRECTED [facility] Last Admin: 10/02/18 12:00 Dose: 3 mls/sec Iohexol (Omnipaque) 20 ml PO ONETIME ONE Stop: 10/02/18 09:01 Last Admin: 10/02/18 09:35 Dose: 20 ml Iopamidol (Isovue-300 (61%)) 150 ml IV . DIRECTED [facility] Last Admin: 10/02/18 12:00 Dose: 150 ml Pantoprazole Sodium (Protonix Iv) 80 mg IVPUSH .BOLUS [facility] Last Admin: 10/01/18 09:45 Dose: 80 mg Polyethylene Glycol (Miralax) 238 gm PO ONETIME ONE Stop: 10/02/18 16:01 Last Admin: 10/02/18 15:35 Dose: 238 gm Propofol (Diprivan 20 Ml) Confirm Administered Dose 200 mg .ROUTE .STK-MED ONE Stop: 10/02/18 07:26 Propofol (Diprivan 20 Ml) Confirm Administered Dose 200 mg .ROUTE .STK-MED ONE Stop: 10/03/18 07:38 Sodium Chloride (Saline Flush) 10 ml FLUSH ONETIME ONE Stop: 10/02/18 10:40 Last Admin: 10/02/18 12:00 Dose: 10 ml - Exam General: Reports: Alert, Oriented, Cooperative, No Acute Distress Lungs: Reports: Clear to Auscultation, Normal Respiratory Effort Cardiovascular: Reports: Regular Rate, Regular Rhythm, No Murmurs GI/Abdominal Exam: Soft, Non-Tender, No Organomegaly, No Distention Extremities: Non-Tender, No Pedal Edema *Q Meaningful Use (DIS) - VTE *Q VTE Pharmacological Contraindications *Q: Active Hemorrhage
--- NOTE | 2018-10-06 13:57 | PN ---
DATE OF SERVICE: 10/05/2018 The patient has been clinically stable. No signs of further bleeding. Hemoglobin is in the upper 8's, and plan is to have him discharged to home per Dr. Thayer. The patient will be hopefully scheduled for a capsule enteroscopy and then we will see the patient back on 10/14 to review those findings and proceed from that point forward. Yahir Sharma MD /[id number]
== END 2018-10-05 13:40 | disposition home or self-care (01) | DRG 378 ==
LOC: JP.ED 07:21 → JP.ICU 08:56 → JP.MS 10-03 13:20
PROVIDERS: ADMIT Internal Medicine; ATTEND Hospitalist
PROC: 30233N1 Transfusion of Nonautologous Red Blood Cells into Peripheral Vein, Percutaneous Approach (ICD-10-PCS; principal; 2018-10-01)
PROC: 0DB78ZX Excision of Stomach, Pylorus, Via Natural or Artificial Opening Endoscopic, Diagnostic (ICD-10-PCS; 2018-10-02)
PROC: 0DJD8ZZ Inspection of Lower Intestinal Tract, Via Natural or Artificial Opening Endoscopic (ICD-10-PCS; 2018-10-03)
DX: K92.2 Gastrointestinal hemorrhage, unspecified (principal); D62 Acute posthemorrhagic anemia; C78.00 Secondary malignant neoplasm of unspecified lung; R55 Syncope and collapse; Z87.11 Personal history of peptic ulcer disease; K57.30 Diverticulosis of large intestine without perforation or abscess without bleeding; W19.XXXA Unspecified fall, initial encounter; Y92.003 Bedroom of unspecified non-institutional (private) residence as the place of occurrence of the external cause; G47.30 Sleep apnea, unspecified; Z85.820 Personal history of malignant melanoma of skin; Z85.828 Personal history of other malignant neoplasm of skin; Z92.3 Personal history of irradiation; H54.7 Unspecified visual loss
CPT/HCPCS: 36415; 80053; 82272; 85025; 86850; 86900; 86901; 86920 ×2; 86922 ×2; 96361; 96374; 99283; 99285; J7030; 36430; 74177; 80048; 85018; 85027; 87081; A9270-GY; C9113; J2001; J2704; J3010; J3480; J7120; P9016; Q9965